=== PATIENT | male | born 1930 | race Caucasian/White ===

== ENCOUNTER 2016-04-13 00:22 | Inpatient (IN) | payer MEDICARE, OTHER, MEDICAID ==
[~2016-04-13] VITALS: Ht 195.6 cm; Wt 60.3 kg
[~2016-04-13 00:22] MED LIST: AMLO2.5T PO; CLOP75TA2 PO; GLUC100017 PO; MULT-24 PO; TAMS-12 PO
[2016-04-13 00:57] LABS: BASOPHILS # (AUTO) 0.1 /CMM (0.0-0.2); BASOPHILS % (AUTO) 0.3 % (0.0-2.0); DIFF TOTAL % 100 %; EOSINOPHILS # (AUTO) 0.1 /CMM (0.0-0.7); EOSINOPHILS % (AUTO) 0.7 % (0.0-6.0); HEMATOCRIT 35 % (39-51); HEMOGLOBIN 11.6 g/dL (13.5-17.5); LYMPHOCYTES # (AUTO) 1.1 /CMM (0.8-4.8); LYMPHOCYTES % (AUTO) 5.6 % (20.0-44.0); MEAN CORPUSCULAR HEMOGLOBIN 29 PG (26.0-33.0); MEAN CORPUSCULAR HGB CONC 33 g/dl (31.0-36.0); MEAN CORPUSCULAR VOLUME 88 fL (80-96); MONOCYTES # (AUTO) 1.1 /CMM (0.1-1.30); MONOCYTES % (AUTO) 5.4 % (2.0-12.0); NEUTROPHILS # (AUTO) 17.1 /CMM (1.8-8.9); PLATELET COUNT (AUTO) 329 /CMM (150-450); WHITE BLOOD COUNT (AUTO) 19.5 K/uL (4.3-11.0)
[2016-04-13 01:08] LABS: ANION GAP 9 (5-14); CALCIUM, SERUM 9.4 mg/dL (8.5-10.1); CARBON DIOXIDE 31 mmol/L (21-32); CHLORIDE 103 mmol/L (98-107); CREATININE 1.2 mg/dL (0.6-1.3); GLUCOSE 118 mg/dL (74-106); POTASSIUM 4.2 mmol/L (3.5-5.1); SODIUM SERUM 139 mmol/L (136-145); UREA NITROGEN, BLOOD 25 mg/dL (7-18)
[2016-04-13 01:12] LABS: INR 0.96 (0.87-1.13); PROTHROMBIN TIME 10.4 SECS (9.5-12.7)
[2016-04-13 01:14] LABS: ALANINE AMINOTRANSFERASE 19 U/L (12-78); ALBUMIN 3.4 g/dL (3.4-5.0); ASPARTATE AMINOTRANSFERASE 12 U/L (15-37); BILIRUBIN,DIRECT 0.1 mg/dL (0.0-0.2); BILIRUBIN,TOTAL 0.2 mg/dL (0.2-1.0); INDIRECT BILIRUBIN 0.1 mg/dL (0.0-1.1); TOTAL PROTEIN, SERUM 6.9 g/dL (6.4-8.2)
[2016-04-13 01:18] LABS: TROPONIN I < 0.017 ng/mL (0.00-0.056)
[2016-04-13] MEDS ORDERED: TDAP [DIPH/PERTUSSIS/TET] 0.5 ML VIAL IM ONE (01:30)
[2016-04-13] MEDS ORDERED: MAGN400O6 PO (01:37)
[2016-04-13] MEDS ORDERED: CARB-93 PO (01:37)
[2016-04-13] MEDS ORDERED: BISA10SU8 RC (01:37)
[2016-04-13] MEDS ORDERED: ACET650T10 PO (01:37)
[2016-04-13] MEDS ORDERED: DEXT15DR6 EACHEYE (01:37)
[2016-04-13] MEDS ORDERED: NA P133E RC (01:37)
[2016-04-13] MEDS ORDERED: HYDR-3326 PO (01:37)
[2016-04-13] MEDS ORDERED: LORAZEPAM INJ 2 MG/ML VIAL ONE (02:39)
[2016-04-13] MEDS ORDERED: LORAZEPAM INJ 2 MG/ML VIAL IV ONE (03:00)
[2016-04-13 05:30] VITALS: BP 149/77
[2016-04-13] MEDS ORDERED: ONDANSETRON HCL/PF 4 MG/2 ML VIAL IVP PRN (07:00)
[2016-04-13] MEDS ORDERED: Z GUARD REMEDY 2 OZ OINT TP PRN (07:00)
[2016-04-13] MEDS ORDERED: MAG HYDROX/AL HYDROX/SIMETH 30 ML UDC PO PRN (07:00)
[2016-04-13] MEDS ORDERED: MAGNESIUM HYDROXIDE 30 ML UDC PO PRN ×2 (07:00→09:30)
[2016-04-13 07:52] LABS: ADD UA MICROSCOPIC NO; KETONES,URINE NEGATIVE (NEGATIVE); LEUKOCYTE ESTERASE ,URINE NEGATIVE (NEGATIVE)
[2016-04-13 08:00] VITALS: BP 128/71
[2016-04-13 08:18] LABS: PHOSPHORUS 2.5 mg/dL (2.5-4.9)
[2016-04-13] MEDS: PANTOPRAZOLE 40 MG TABLET.DR PO SCH (08:28)
[2016-04-13] MEDS ORDERED: AMIN30LI4 PO (08:51)
[2016-04-13] MEDS ORDERED: AMLO2.5T PO (08:51)
[2016-04-13] MEDS ORDERED: BISACODYL SUPP (10 MG) 10 MG/SUPP.RECT SUPP.RECT RC PRN (09:30)
[2016-04-13] MEDS ORDERED: IV SET PRIMARY PUMP SET 1 EA INFUS.SET MC ONE (09:43)
[2016-04-13] MEDS: IV NS 0.9% 1,000 ML IV PRN ×2 (09:47→23:20)
[2016-04-13] MEDS: CLOPIDOGREL BISULFATE 75 MG TABLET PO SCH (09:53)
[2016-04-13] MEDS: AMLODIPINE BESYLATE 2.5 MG TABLET PO SCH (09:54)
[2016-04-13 09:56] VITALS: BP_SYST 116; BP_SYST 132; BP_SYST 137; BP_DIAS 57; BP_DIAS 64; BP_DIAS 82
[2016-04-13] MEDS: BOOST PLUS FOOD-VANILLA 237 ML BOX PO SCH ×2 (12:24→16:45)
[2016-04-13] MEDS: POLYVINYL ALCOHOL 15 ML BOTTLE EACHEYE SCH ×2 (12:25→16:43)
[2016-04-13] MEDS: CARBIDOPA/LEVODOPA 25/100 MG 1 UDTAB PO SCH ×3 (12:27→20:52)
[2016-04-13 16:00] VITALS: BP 135/97
[2016-04-13] MEDS: LORAZEPAM INJ 2 MG/ML VIAL IV PRN (16:26)
[2016-04-13] MEDS: NEOMY SULF/BACITRAC ZN/POLY 15 GM TUBE TP SCH (16:43)
[2016-04-13 20:00] VITALS: BP 131/62
[2016-04-13] MEDS: TAMSULOSIN 0.4 MG CAP.SR.24H PO SCH (20:52)
[2016-04-14] MEDS: LORAZEPAM INJ 2 MG/ML VIAL IV PRN ×3 (02:44→22:21)
[2016-04-14 07:56] LABS: BASOPHILS # (AUTO) 0.1 /CMM (0.0-0.2); BASOPHILS % (AUTO) 0.5 % (0.0-2.0); DIFF TOTAL % 100 %; EOSINOPHILS # (AUTO) 0.2 /CMM (0.0-0.7); EOSINOPHILS % (AUTO) 1.5 % (0.0-6.0); HEMATOCRIT 31 % (39-51); HEMOGLOBIN 10.4 g/dL (13.5-17.5); LYMPHOCYTES # (AUTO) 1.5 /CMM (0.8-4.8); LYMPHOCYTES % (AUTO) 11.9 % (20.0-44.0); MEAN CORPUSCULAR HEMOGLOBIN 29 PG (26.0-33.0); MEAN CORPUSCULAR HGB CONC 33 g/dl (31.0-36.0); MEAN CORPUSCULAR VOLUME 88 fL (80-96); MONOCYTES % (AUTO) 8.1 % (2.0-12.0); NEUTROPHILS # (AUTO) 9.6 /CMM (1.8-8.9); PLATELET COUNT (AUTO) 293 /CMM (150-450); RED BLOOD CELL COUNT(AUTO) 3.54 MIL/uL (4.5-6.0); WHITE BLOOD COUNT (AUTO) 12.3 K/uL (4.3-11.0)
[2016-04-14 08:00] VITALS: BP 142/71
[2016-04-14] MEDS: BOOST PLUS FOOD-VANILLA 237 ML BOX PO SCH ×2 (08:07→18:18)
[2016-04-14] MEDS: CARBIDOPA/LEVODOPA 25/100 MG 1 UDTAB PO SCH ×4 (08:07→20:56)
[2016-04-14] MEDS: CLOPIDOGREL BISULFATE 75 MG TABLET PO SCH (08:07)
[2016-04-14] MEDS: PANTOPRAZOLE 40 MG TABLET.DR PO SCH (08:07)
[2016-04-14] MEDS: AMLODIPINE BESYLATE 2.5 MG TABLET PO SCH (08:07)
[2016-04-14] MEDS: POLYVINYL ALCOHOL 15 ML BOTTLE EACHEYE SCH ×3 (08:08→18:18)
[2016-04-14] MEDS: NEOMY SULF/BACITRAC ZN/POLY 15 GM TUBE TP SCH (08:08)
[2016-04-14 08:19] LABS: ALBUMIN 3.2 g/dL (3.4-5.0); BILIRUBIN,TOTAL 0.4 mg/dL (0.2-1.0); CALCIUM, SERUM 9.2 mg/dL (8.5-10.1); CREATININE 0.9 mg/dL (0.6-1.3); PHOSPHORUS 2.1 mg/dL (2.5-4.9); POTASSIUM 3.8 mmol/L (3.5-5.1); TOTAL PROTEIN, SERUM 6.6 g/dL (6.4-8.2)
[2016-04-14 16:07] VITALS: BP 150/75
[2016-04-14] MEDS ORDERED: K PHOS NEUTRAL 250 MG TABLET PO ONE (17:00)
[2016-04-14 20:15] VITALS: BP 130/62
[2016-04-14] MEDS: TAMSULOSIN 0.4 MG CAP.SR.24H PO SCH (20:56)
[2016-04-14] MEDS: IV NS 0.9% 1,000 ML IV PRN (21:00)
[2016-04-14] MEDS: ACETAMINOPHEN 325 MG TABLET PO PRN (21:04)
[2016-04-15] MEDS: LORAZEPAM INJ 2 MG/ML VIAL IV PRN (05:04)
[2016-04-15] MEDS: IV NS 0.9% 1,000 ML IV PRN (06:07)
[2016-04-15 08:00] VITALS: BP 147/87
[2016-04-15 08:11] LABS: PHOSPHORUS 2.5 mg/dL (2.5-4.9); POTASSIUM 3.5 mmol/L (3.5-5.1)
[2016-04-15] MEDS: CARBIDOPA/LEVODOPA 25/100 MG 1 UDTAB PO SCH ×4 (08:43→21:46)
[2016-04-15] MEDS: CLOPIDOGREL BISULFATE 75 MG TABLET PO SCH (08:43)
[2016-04-15] MEDS: PANTOPRAZOLE 40 MG TABLET.DR PO SCH (08:43)
[2016-04-15] MEDS: BOOST PLUS FOOD-VANILLA 237 ML BOX PO SCH ×2 (08:43→17:14)
[2016-04-15] MEDS: AMLODIPINE BESYLATE 2.5 MG TABLET PO SCH (08:44)
[2016-04-15] MEDS: NEOMY SULF/BACITRAC ZN/POLY 15 GM TUBE TP SCH (08:44)
[2016-04-15] MEDS: POLYVINYL ALCOHOL 15 ML BOTTLE EACHEYE SCH ×3 (08:52→17:15)
[2016-04-15 12:32] LABS: BASOPHILS % (AUTO) 0.3 % (0.0-2.0); DIFF TOTAL % 100 %; EOSINOPHILS # (AUTO) 0.1 /CMM (0.0-0.7); EOSINOPHILS % (AUTO) 0.7 % (0.0-6.0); HEMATOCRIT 29 % (39-51); HEMOGLOBIN 9.8 g/dL (13.5-17.5); LYMPHOCYTES # (AUTO) 1.5 /CMM (0.8-4.8); LYMPHOCYTES % (AUTO) 11.6 % (20.0-44.0); MEAN CORPUSCULAR HEMOGLOBIN 30 PG (26.0-33.0); MEAN CORPUSCULAR HGB CONC 33 g/dl (31.0-36.0); MEAN CORPUSCULAR VOLUME 89 fL (80-96); MONOCYTES # (AUTO) 1.2 /CMM (0.1-1.30); MONOCYTES % (AUTO) 9.5 % (2.0-12.0); NEUTROPHILS % (AUTO) 77.9 % (43.0-81.0); PLATELET COUNT (AUTO) 259 /CMM (150-450); WHITE BLOOD COUNT (AUTO) 12.9 K/uL (4.3-11.0)
[2016-04-15 16:00] VITALS: BP 131/69
[2016-04-15 19:00] VITALS: BP_SYST 126; BP_SYST 143; BP_DIAS 67; BP_DIAS 74
[2016-04-15 20:00] VITALS: BP 126/67
[2016-04-15] MEDS: ACETAMINOPHEN 325 MG TABLET PO PRN (21:47)
[2016-04-15] MEDS: TAMSULOSIN 0.4 MG CAP.SR.24H PO SCH (21:47)
[2016-04-16] MEDS: LORAZEPAM INJ 2 MG/ML VIAL IV PRN (02:37)
[2016-04-16 08:00] VITALS: BP 134/74
[2016-04-16] MEDS: PANTOPRAZOLE 40 MG TABLET.DR PO SCH (08:11)
[2016-04-16] MEDS: CLOPIDOGREL BISULFATE 75 MG TABLET PO SCH (08:11)
[2016-04-16] MEDS: BOOST PLUS FOOD-VANILLA 237 ML BOX PO SCH (08:12)
[2016-04-16] MEDS: POLYVINYL ALCOHOL 15 ML BOTTLE EACHEYE SCH (08:12)
[2016-04-16 08:13] VITALS: BP 134/74
[2016-04-16] MEDS: CARBIDOPA/LEVODOPA 25/100 MG 1 UDTAB PO SCH (08:13)
[2016-04-16] MEDS: AMLODIPINE BESYLATE 2.5 MG TABLET PO SCH (08:13)
[2016-04-16] MEDS: NEOMY SULF/BACITRAC ZN/POLY 15 GM TUBE TP SCH (08:14)
== END 2016-04-16 11:50 | DRG 73 ==
LOC: ER 00:27 → TELE 03:01 → MED 16:22
PROVIDERS: ADMIT Nurse Practitioner Acute Care; ATTEND Internal Medicine
DX: G90.8 Other disorders of autonomic nervous system (principal); N17.0 Acute kidney failure with tubular necrosis; E44.0 Moderate protein-calorie malnutrition; L97.919 Non-pressure chronic ulcer of unspecified part of right lower leg with unspecified severity; I10 Essential (primary) hypertension; F03.90 Unspecified dementia, unspecified severity, without behavioral disturbance, psychotic disturbance, mood disturbance, and anxiety; S51.019A Laceration without foreign body of unspecified elbow, initial encounter; W19.XXXA Unspecified fall, initial encounter; Y92.129 Unspecified place in nursing home as the place of occurrence of the external cause; N40.0 Benign prostatic hyperplasia without lower urinary tract symptoms; G20 Parkinson's disease; Z86.73 Personal history of transient ischemic attack (TIA), and cerebral infarction without residual deficits; E78.5 Hyperlipidemia, unspecified; Z87.442 Personal history of urinary calculi; K21.9 Gastro-esophageal reflux disease without esophagitis; D72.829 Elevated white blood cell count, unspecified; M19.90 Unspecified osteoarthritis, unspecified site; S01.81XA Laceration without foreign body of other part of head, initial encounter; F02.80 Dementia in other diseases classified elsewhere, unspecified severity, without behavioral disturbance, psychotic disturbance, mood disturbance, and anxiety; G62.9 Polyneuropathy, unspecified; D64.9 Anemia, unspecified; I25.10 Atherosclerotic heart disease of native coronary artery without angina pectoris; I73.9 Peripheral vascular disease, unspecified
CPT/HCPCS: 36415; 70450-TC; 71010-TC; 72125-TC; 73070-TC; 73080-TC; 80048-TC; 80053-TC; 80061-TC; 80076-TC; 81000-TC; 83735-TC; 84100-TC; 84484-TC; 85025-TC; 85730-TC; 87081-TC; 97001-TC; A4606; A6402; A6403; J2060; J7030; Z7610

== ENCOUNTER 2016-04-19 17:15 | Inpatient (IN) | payer MEDICARE, MEDICAID ==
[~2016-04-19] VITALS: Ht 182.9 cm; Wt 77.1 kg
[~2016-04-19 17:15] MED LIST changes: +ACET650T10 PO; +AMIN30LI4 PO; +BISA10SU8 RC; +CARB-93 PO; +DEXT15DR6 EACHEYE; +MAGN400O6 PO; -MULT-24 PO; +NA P133E RC
[2016-04-19 17:50] LABS: BASOPHILS # (AUTO) 0.1 /CMM (0.0-0.2); BASOPHILS % (AUTO) 0.7 % (0.0-2.0); DIFF TOTAL % 100 %; EOSINOPHILS # (AUTO) 0.3 /CMM (0.0-0.7); EOSINOPHILS % (AUTO) 2.6 % (0.0-6.0); HEMATOCRIT 29 % (39-51); HEMOGLOBIN 9.8 g/dL (13.5-17.5); LYMPHOCYTES # (AUTO) 0.9 /CMM (0.8-4.8); LYMPHOCYTES % (AUTO) 9.2 % (20.0-44.0); MEAN CORPUSCULAR HEMOGLOBIN 29 PG (26.0-33.0); MEAN CORPUSCULAR HGB CONC 34 g/dl (31.0-36.0); MEAN CORPUSCULAR VOLUME 87 fL (80-96); MONOCYTES # (AUTO) 1.1 /CMM (0.1-1.30); MONOCYTES % (AUTO) 10.9 % (2.0-12.0); NEUTROPHILS # (AUTO) 7.8 /CMM (1.8-8.9); NEUTROPHILS % (AUTO) 76.6 % (43.0-81.0); PLATELET COUNT (AUTO) 342 /CMM (150-450); RED BLOOD CELL COUNT(AUTO) 3.34 MIL/uL (4.5-6.0); WHITE BLOOD COUNT (AUTO) 10.2 K/uL (4.3-11.0)
[2016-04-19 18:04] LABS: ANION GAP 10 (5-14); CALCIUM, SERUM 9.6 mg/dL (8.5-10.1); CARBON DIOXIDE 31 mmol/L (21-32); CHLORIDE 104 mmol/L (98-107); GLUCOSE 123 mg/dL (74-106); SODIUM SERUM 141 mmol/L (136-145); UREA NITROGEN, BLOOD 20 mg/dL (7-18)
[2016-04-19 18:19] LABS: ACETAMINOPHEN 9 ug/ml (10-30); ALANINE AMINOTRANSFERASE 10 U/L (12-78); ALBUMIN 3.1 g/dL (3.4-5.0); ASPARTATE AMINOTRANSFERASE 18 U/L (15-37); BILIRUBIN,DIRECT 0.1 mg/dL (0.0-0.2); BILIRUBIN,TOTAL 0.3 mg/dL (0.2-1.0); INDIRECT BILIRUBIN 0.2 mg/dL (0.0-1.1); TOTAL PROTEIN, SERUM 6.9 g/dL (6.4-8.2)
[2016-04-19 18:20] LABS: SALICYLATE 1.2 mg/dL (2.8-20.0)
[2016-04-19 19:24] LABS: KETONES,URINE Negative (NEGATIVE); LEUKOCYTE ESTERASE ,URINE Negative (NEGATIVE)
[2016-04-19 19:26] LABS: ADD UA MICROSCOPIC NO
[2016-04-19 19:47] LABS: CANNABINOID, URINE NEGATIVE (NEGATIVE); PHENCYCLIDINE SCREEN,URINE NEGATIVE (NEGATIVE)
[2016-04-19] MEDS ORDERED: ACETAMINOPHEN 325 MG TABLET PO PRN (23:00)
[2016-04-19] MEDS ORDERED: MAG HYDROX/AL HYDROX/SIMETH 30 ML UDC PO PRN (23:00)
[2016-04-19] MEDS ORDERED: MAGNESIUM HYDROXIDE 30 ML UDC PO PRN (23:00)
[2016-04-20 06:56] LABS: CREATININE 0.9 mg/dL (0.6-1.3)
[2016-04-20 08:00] VITALS: BP 154/72
[2016-04-20] MEDS: Z GUARD REMEDY 2 OZ OINT TP SCH ×2 (08:04→22:10)
[2016-04-20] MEDS ORDERED: BISACODYL SUPP (10 MG) 10 MG/SUPP.RECT SUPP.RECT RC PRN (11:00)
[2016-04-20] MEDS ORDERED: NA PHOS,M-B/NA PHOS,DI-BA 1 EA ENEMA RC PRN (11:30)
[2016-04-20] MEDS ORDERED: ACETAMINOPHEN 325 MG TABLET PO PRN (11:30)
[2016-04-20] MEDS ORDERED: MAGNESIUM HYDROXIDE 30 ML UDC PO PRN (11:30)
[2016-04-20] MEDS ORDERED: PROSTAT (PYXIS) 30 ML UDC PO SCH (12:00)
[2016-04-20] MEDS: CARBIDOPA/LEVODOPA 25/100 MG 1 UDTAB PO SCH ×3 (12:32→20:22)
[2016-04-20] MEDS: POLYVINYL ALCOHOL 15 ML BOTTLE OP SCH ×2 (13:53→16:12)
[2016-04-20 16:06] VITALS: BP 147/61
[2016-04-20] MEDS: clonazePAM 0.5 MG TABLET PO PRN (16:19)
[2016-04-20] MEDS: QUETIAPINE FUMARATE 25 MG TABLET PO SCH (17:32)
[2016-04-20 20:00] VITALS: BP 132/62
[2016-04-20] MEDS: DIVALPROEX SODIUM 125 MG CAP.SPRINK PO SCH (20:23)
[2016-04-20] MEDS: TAMSULOSIN 0.4 MG CAP.SR.24H PO SCH (22:09)
[2016-04-21] MEDS: TEMAZEPAM 7.5 MG CAPSULE PO PRN ×2 (00:31→22:26)
[2016-04-21 08:00] VITALS: BP 144/70
[2016-04-21] MEDS: DIVALPROEX SODIUM 125 MG CAP.SPRINK PO SCH ×2 (08:38→21:36)
[2016-04-21] MEDS: CLOPIDOGREL BISULFATE 75 MG TABLET PO SCH (08:38)
[2016-04-21] MEDS: PROSOURCE / PROSTAT (PYXIS) 30 ML UDC PO SCH (08:38)
[2016-04-21] MEDS: AMLODIPINE BESYLATE 2.5 MG TABLET PO SCH (08:39)
[2016-04-21] MEDS: QUETIAPINE FUMARATE 25 MG TABLET PO SCH ×2 (08:39→17:09)
[2016-04-21] MEDS: POLYVINYL ALCOHOL 15 ML BOTTLE OP SCH ×3 (08:41→17:08)
[2016-04-21] MEDS: CARBIDOPA/LEVODOPA 25/100 MG 1 UDTAB PO SCH ×4 (08:51→21:36)
[2016-04-21] MEDS: Z GUARD REMEDY 2 OZ OINT TP SCH ×2 (08:51→21:31)
[2016-04-21] MEDS: clonazePAM 0.5 MG TABLET PO PRN (13:55)
[2016-04-21 16:00] VITALS: BP 108/61
[2016-04-21 20:00] VITALS: BP 118/52
[2016-04-21] MEDS: TAMSULOSIN 0.4 MG CAP.SR.24H PO SCH (22:26)
[2016-04-22 07:20] LABS: BASOPHILS % (AUTO) 0.4 % (0.0-2.0); DIFF TOTAL % 100 %; EOSINOPHILS # (AUTO) 0.3 /CMM (0.0-0.7); EOSINOPHILS % (AUTO) 3.1 % (0.0-6.0); HEMATOCRIT 31 % (39-51); HEMOGLOBIN 10.1 g/dL (13.5-17.5); LYMPHOCYTES # (AUTO) 1.4 /CMM (0.8-4.8); LYMPHOCYTES % (AUTO) 12.8 % (20.0-44.0); MEAN CORPUSCULAR HEMOGLOBIN 29 PG (26.0-33.0); MEAN CORPUSCULAR HGB CONC 33 g/dl (31.0-36.0); MEAN CORPUSCULAR VOLUME 88 fL (80-96); MONOCYTES # (AUTO) 1.1 /CMM (0.1-1.30); MONOCYTES % (AUTO) 9.8 % (2.0-12.0); NEUTROPHILS # (AUTO) 8.4 /CMM (1.8-8.9); NEUTROPHILS % (AUTO) 73.9 % (43.0-81.0); PLATELET COUNT (AUTO) 383 /CMM (150-450); RED BLOOD CELL COUNT(AUTO) 3.48 MIL/uL (4.5-6.0); WHITE BLOOD COUNT (AUTO) 11.3 K/uL (4.3-11.0)
[2016-04-22 07:53] LABS: CALCIUM, SERUM 9.6 mg/dL (8.5-10.1)
[2016-04-22 08:00] VITALS: BP 126/61
[2016-04-22] MEDS: CLOPIDOGREL BISULFATE 75 MG TABLET PO SCH (09:35)
[2016-04-22] MEDS: QUETIAPINE FUMARATE 25 MG TABLET PO SCH ×2 (09:36→16:58)
[2016-04-22] MEDS: PROSOURCE / PROSTAT (PYXIS) 30 ML UDC PO SCH (09:36)
[2016-04-22] MEDS: DIVALPROEX SODIUM 125 MG CAP.SPRINK PO SCH ×3 (09:36→21:07)
[2016-04-22] MEDS: AMLODIPINE BESYLATE 2.5 MG TABLET PO SCH (09:37)
[2016-04-22] MEDS: CARBIDOPA/LEVODOPA 25/100 MG 1 UDTAB PO SCH ×5 (09:40→21:06)
[2016-04-22] MEDS: clonazePAM 0.5 MG TABLET PO PRN (10:22)
[2016-04-22] MEDS: Z GUARD REMEDY 2 OZ OINT TP SCH ×2 (10:34→21:07)
[2016-04-22] MEDS: POLYVINYL ALCOHOL 15 ML BOTTLE OP SCH ×3 (10:34→16:57)
[2016-04-22 16:00] VITALS: BP 128/76
[2016-04-22 20:00] VITALS: BP 137/74
[2016-04-22] MEDS: TAMSULOSIN 0.4 MG CAP.SR.24H PO SCH (22:08)
[2016-04-23 08:00] VITALS: BP 150/84
[2016-04-23] MEDS: PROSOURCE / PROSTAT (PYXIS) 30 ML UDC PO SCH (09:20)
[2016-04-23] MEDS: QUETIAPINE FUMARATE 25 MG TABLET PO SCH ×2 (09:20→17:17)
[2016-04-23] MEDS: CLOPIDOGREL BISULFATE 75 MG TABLET PO SCH (09:21)
[2016-04-23] MEDS: DIVALPROEX SODIUM 125 MG CAP.SPRINK PO SCH ×3 (09:21→21:38)
[2016-04-23] MEDS: AMLODIPINE BESYLATE 2.5 MG TABLET PO SCH (09:21)
[2016-04-23] MEDS: CARBIDOPA/LEVODOPA 25/100 MG 1 UDTAB PO SCH ×4 (09:26→21:38)
[2016-04-23] MEDS: Z GUARD REMEDY 2 OZ OINT TP SCH ×2 (09:27→21:38)
[2016-04-23] MEDS: POLYVINYL ALCOHOL 15 ML BOTTLE OP SCH ×3 (09:28→17:20)
[2016-04-23] MEDS ORDERED: QUETIAPINE FUMARATE 25 MG TABLET PO PRN (15:00)
[2016-04-23 16:00] VITALS: BP 104/58
[2016-04-23 20:13] VITALS: BP 153/80
[2016-04-23] MEDS: TAMSULOSIN 0.4 MG CAP.SR.24H PO SCH (21:38)
[2016-04-24 07:25] LABS: BASOPHILS % (AUTO) 0.3 % (0.0-2.0); DIFF TOTAL % 100 %; EOSINOPHILS # (AUTO) 0.3 /CMM (0.0-0.7); EOSINOPHILS % (AUTO) 2.8 % (0.0-6.0); HEMATOCRIT 33 % (39-51); HEMOGLOBIN 10.8 g/dL (13.5-17.5); LYMPHOCYTES # (AUTO) 1.4 /CMM (0.8-4.8); LYMPHOCYTES % (AUTO) 13.3 % (20.0-44.0); MEAN CORPUSCULAR HEMOGLOBIN 29 PG (26.0-33.0); MEAN CORPUSCULAR HGB CONC 33 g/dl (31.0-36.0); MEAN CORPUSCULAR VOLUME 88 fL (80-96); MONOCYTES # (AUTO) 1.1 /CMM (0.1-1.30); NEUTROPHILS # (AUTO) 7.9 /CMM (1.8-8.9); NEUTROPHILS % (AUTO) 73.6 % (43.0-81.0); PLATELET COUNT (AUTO) 386 /CMM (150-450); RED BLOOD CELL COUNT(AUTO) 3.74 MIL/uL (4.5-6.0); WHITE BLOOD COUNT (AUTO) 10.8 K/uL (4.3-11.0)
[2016-04-24 08:00] VITALS: BP 148/79
[2016-04-24] MEDS: POLYVINYL ALCOHOL 15 ML BOTTLE OP SCH ×3 (08:31→17:33)
[2016-04-24] MEDS: AMLODIPINE BESYLATE 2.5 MG TABLET PO SCH (08:36)
[2016-04-24] MEDS: CLOPIDOGREL BISULFATE 75 MG TABLET PO SCH (08:36)
[2016-04-24] MEDS: DIVALPROEX SODIUM 125 MG CAP.SPRINK PO SCH ×3 (08:36→21:30)
[2016-04-24] MEDS: QUETIAPINE FUMARATE 25 MG TABLET PO SCH ×3 (08:37→17:34)
[2016-04-24] MEDS: PROSOURCE / PROSTAT (PYXIS) 30 ML UDC PO SCH (08:37)
[2016-04-24] MEDS: Z GUARD REMEDY 2 OZ OINT TP SCH ×2 (08:40→21:00)
[2016-04-24] MEDS: CARBIDOPA/LEVODOPA 25/100 MG 1 UDTAB PO SCH ×4 (08:40→21:30)
[2016-04-24] MEDS ORDERED: CLOPIDOGREL BISULFATE 75 MG TABLET PO SCH (13:00)
[2016-04-24 16:00] VITALS: BP 132/74
[2016-04-24 19:58] VITALS: BP 115/65
[2016-04-24] MEDS: TAMSULOSIN 0.4 MG CAP.SR.24H PO SCH (21:30)
[2016-04-25] MEDS ORDERED: FIXODENT 1 EA TUBE PO PRN (07:30)
[2016-04-25 08:00] VITALS: BP 140/79
[2016-04-25] MEDS: Z GUARD REMEDY 2 OZ OINT TP SCH ×2 (09:00→21:29)
[2016-04-25] MEDS: DIVALPROEX SODIUM 125 MG CAP.SPRINK PO SCH ×3 (09:08→21:25)
[2016-04-25] MEDS: AMLODIPINE BESYLATE 2.5 MG TABLET PO SCH ×2 (09:09→17:51)
[2016-04-25] MEDS: QUETIAPINE FUMARATE 25 MG TABLET PO SCH ×3 (09:10→17:49)
[2016-04-25] MEDS: CLOPIDOGREL BISULFATE 75 MG TABLET PO SCH (09:10)
[2016-04-25] MEDS: PROSOURCE / PROSTAT (PYXIS) 30 ML UDC PO SCH (09:18)
[2016-04-25] MEDS: POLYVINYL ALCOHOL 15 ML BOTTLE OP SCH ×3 (09:21→17:00)
[2016-04-25] MEDS: CARBIDOPA/LEVODOPA 25/100 MG 1 UDTAB PO SCH ×4 (09:59→21:24)
[2016-04-25 16:00] VITALS: BP 108/54
[2016-04-25 21:14] VITALS: BP 100/52
[2016-04-25] MEDS: TAMSULOSIN 0.4 MG CAP.SR.24H PO SCH (21:25)
[2016-04-26 08:00] VITALS: BP 139/70
[2016-04-26] MEDS: CARBIDOPA/LEVODOPA 25/100 MG 1 UDTAB PO SCH ×4 (09:00→21:23)
[2016-04-26] MEDS: Z GUARD REMEDY 2 OZ OINT TP SCH ×2 (09:00→21:23)
[2016-04-26] MEDS: PROSOURCE / PROSTAT (PYXIS) 30 ML UDC PO SCH (09:52)
[2016-04-26] MEDS: QUETIAPINE FUMARATE 25 MG TABLET PO SCH ×3 (09:53→18:00)
[2016-04-26] MEDS: DIVALPROEX SODIUM 125 MG CAP.SPRINK PO SCH ×3 (09:53→21:23)
[2016-04-26] MEDS: CLOPIDOGREL BISULFATE 75 MG TABLET PO SCH (09:54)
[2016-04-26] MEDS: POLYVINYL ALCOHOL 15 ML BOTTLE OP SCH ×3 (10:02→18:03)
[2016-04-26 16:00] VITALS: BP 125/55
[2016-04-26 19:58] VITALS: BP 153/74
[2016-04-26] MEDS: clonazePAM 0.5 MG TABLET PO PRN (21:23)
[2016-04-26] MEDS: TAMSULOSIN 0.4 MG CAP.SR.24H PO SCH (21:23)
[2016-04-27 08:00] VITALS: BP 122/53
[2016-04-27] MEDS: POLYVINYL ALCOHOL 15 ML BOTTLE OP SCH ×3 (08:30→16:44)
[2016-04-27] MEDS: DIVALPROEX SODIUM 125 MG CAP.SPRINK PO SCH ×3 (08:32→20:21)
[2016-04-27] MEDS: CLOPIDOGREL BISULFATE 75 MG TABLET PO SCH (08:32)
[2016-04-27] MEDS: PROSOURCE / PROSTAT (PYXIS) 30 ML UDC PO SCH (08:34)
[2016-04-27 08:38] VITALS: BP 132/62
[2016-04-27] MEDS: QUETIAPINE FUMARATE 25 MG TABLET PO SCH ×3 (08:38→16:47)
[2016-04-27] MEDS: AMLODIPINE BESYLATE 2.5 MG TABLET PO SCH (08:38)
[2016-04-27] MEDS: CARBIDOPA/LEVODOPA 25/100 MG 1 UDTAB PO SCH ×4 (08:38→20:25)
[2016-04-27] MEDS: Z GUARD REMEDY 2 OZ OINT TP SCH ×2 (09:23→20:29)
[2016-04-27 16:00] VITALS: BP 123/61
[2016-04-27 20:00] VITALS: BP 154/90
[2016-04-27] MEDS: TEMAZEPAM 7.5 MG CAPSULE PO PRN (21:33)
[2016-04-27] MEDS: TAMSULOSIN 0.4 MG CAP.SR.24H PO SCH (21:33)
[2016-04-28 08:00] VITALS: BP_SYST 103; BP_SYST 143; BP_DIAS 68; BP_DIAS 73
[2016-04-28] MEDS: DIVALPROEX SODIUM 125 MG CAP.SPRINK PO SCH (08:29)
[2016-04-28] MEDS: PROSOURCE / PROSTAT (PYXIS) 30 ML UDC PO SCH (08:29)
[2016-04-28] MEDS: QUETIAPINE FUMARATE 25 MG TABLET PO SCH ×2 (08:29→12:23)
[2016-04-28] MEDS: CLOPIDOGREL BISULFATE 75 MG TABLET PO SCH (08:29)
[2016-04-28] MEDS: POLYVINYL ALCOHOL 15 ML BOTTLE OP SCH ×2 (08:29→12:23)
[2016-04-28] MEDS: CARBIDOPA/LEVODOPA 25/100 MG 1 UDTAB PO SCH ×2 (08:29→12:23)
[2016-04-28 08:30] VITALS: BP 142/73
[2016-04-28] MEDS: AMLODIPINE BESYLATE 2.5 MG TABLET PO SCH (08:30)
[2016-04-28] MEDS: Z GUARD REMEDY 2 OZ OINT TP SCH (09:12)
== END 2016-04-28 13:32 | DRG 885 ==
LOC: ER 17:17 → GPS 22:04
PROVIDERS: ADMIT Psychiatry & Neurology Psychiatry; ATTEND Family Medicine
DX: F29 Unspecified psychosis not due to a substance or known physiological condition (principal); F02.80 Dementia in other diseases classified elsewhere, unspecified severity, without behavioral disturbance, psychotic disturbance, mood disturbance, and anxiety; N17.0 Acute kidney failure with tubular necrosis; E44.1 Mild protein-calorie malnutrition; L97.919 Non-pressure chronic ulcer of unspecified part of right lower leg with unspecified severity; F39 Unspecified mood [affective] disorder; D64.9 Anemia, unspecified; D72.829 Elevated white blood cell count, unspecified; G20 Parkinson's disease; Z86.73 Personal history of transient ischemic attack (TIA), and cerebral infarction without residual deficits; R13.10 Dysphagia, unspecified; I25.10 Atherosclerotic heart disease of native coronary artery without angina pectoris; I10 Essential (primary) hypertension; K21.9 Gastro-esophageal reflux disease without esophagitis; N40.0 Benign prostatic hyperplasia without lower urinary tract symptoms; E78.5 Hyperlipidemia, unspecified; Z87.442 Personal history of urinary calculi; N20.0 Calculus of kidney; I73.9 Peripheral vascular disease, unspecified; Z66 Do not resuscitate
CPT/HCPCS: 36415; 76882; 80048-TC; 80061-TC; 80076-TC; 80305; 81000-TC; 82565-TC; 85025-TC; 87081-TC; 92521; 97001-TC; 97116-TC; 97530-TC; A4606; A6402; G0480; G6039-TC; Z7610

== ENCOUNTER 2016-05-21 11:16 | Emergency (ER) | payer MEDICARE, MEDICAID ==
[~2016-05-21] VITALS: Ht 177.8 cm; Wt 58.5 kg
--- NOTE | 2016-05-21 11:16 | NUR ---
BIB PRIVATE EMT, BRUISES/HEMATOMA, FOREHEAD AND EXTREMITIES. NAD NOTED. PT AAO X1, CONFUSED. NON COMBATIVE. VSS. AWAITING MD FOR EVAL.
--- NOTE | 2016-05-21 12:00 | NUR ---
TAKEN TO CT
--- NOTE | 2016-05-21 13:16 | NUR ---
[facility] CALLED FOR PT PICKUP ETA GIVEN: 30 MINS
[2016-05-21 13:27] VITALS: BP 124/69
--- NOTE | 2016-05-21 14:08 | NUR ---
PT DC BACK TO SNF IN STABLE CONDITION. NAD NOTED. NO FURTHER COMPLAINTS. VSS.
== END 2016-05-21 14:06 | disposition home or self-care (01) ==
LOC: ER 11:18
DX: S09.90XA Unspecified injury of head, initial encounter (principal); S50.11XA Contusion of right forearm, initial encounter; F03.90 Unspecified dementia, unspecified severity, without behavioral disturbance, psychotic disturbance, mood disturbance, and anxiety; G20 Parkinson's disease; I10 Essential (primary) hypertension; Z86.73 Personal history of transient ischemic attack (TIA), and cerebral infarction without residual deficits; W19.XXXA Unspecified fall, initial encounter; Y93.89 Activity, other specified; Y92.89 Other specified places as the place of occurrence of the external cause; Y99.8 Other external cause status
CPT/HCPCS: 70450-TC; A4606; Z7610

== ENCOUNTER 2016-06-21 10:10 | Emergency (ER) | payer MEDICARE, OTHER, MEDICAID ==
[~2016-06-21] VITALS: Ht 175.3 cm; Wt 72.6 kg
--- NOTE | 2016-06-21 10:21 | NUR ---
Bibpa from [facility] due to sp fall, pt unable to recall when. Noted with right eyebrow discoloraiton and swelling, rback of right ear is also noted with dry skin tear covered with dressing. Patient is aao1. Appears in no acute distress, respiration even and unlabored. Afebrile at this time, vss. will cont to monitot
[2016-06-21] MEDS ORDERED: TDAP [DIPH/PERTUSSIS/TET] 0.5 ML VIAL IM ONE ×2 (10:38→11:00)
[2016-06-21 10:52] LABS: BASOPHILS # (AUTO) 0.1 /CMM (0.0-0.2); BASOPHILS % (AUTO) 0.6 % (0.0-2.0); EOSINOPHILS # (AUTO) 0.1 /CMM (0.0-0.7); EOSINOPHILS % (AUTO) 1.3 % (0.0-6.0); HEMATOCRIT 33 % (39-51); HEMOGLOBIN 10.7 g/dL (13.5-17.5); LYMPHOCYTES # (AUTO) 1.2 /CMM (0.8-4.8); LYMPHOCYTES % (AUTO) 11.2 % (20.0-44.0); MEAN CORPUSCULAR HEMOGLOBIN 29 PG (26.0-33.0); MEAN CORPUSCULAR HGB CONC 33 g/dl (31.0-36.0); MEAN CORPUSCULAR VOLUME 87 fL (80-96); MONOCYTES % (AUTO) 9.7 % (2.0-12.0); NEUTROPHILS % (AUTO) 77.2 % (43.0-81.0); PLATELET COUNT (AUTO) 198 /CMM (150-450); RDW COEFFICIENT OF VARIATION 14.1 (11.5-15.0); RED BLOOD CELL COUNT(AUTO) 3.73 MIL/uL (4.5-6.0); WHITE BLOOD COUNT (AUTO) 10.4 K/uL (4.3-11.0)
[2016-06-21 10:56] LABS: APPEARANCE,URINE Turbid (CLEAR); BILIRUBIN,URINE Negative (NEGATIVE); BLOOD, URINE Large Ery/uL (NEGATIVE); COLOR,URINE Yellow (YELLOW); KETONES,URINE Trace (NEGATIVE); LEUKOCYTE ESTERASE ,URINE Small (NEGATIVE); NITRITE, URINE Negative (NEGATIVE); PH,URINE 5.5 (5.0-8.0); PROTEIN,URINE >=300 mg/dl (NEGATIVE); UGLUCOSE Negative (NEGATIVE)
[2016-06-21 11:01] LABS: WBC,URINE TOO NUMEROUS TO COUN /HPF (0-3)
[2016-06-21 11:02] LABS: ADD URINE CULTURE YES; BACTERIA,URINE Few /HPF (None Seen); SQUAMOUS EPITHELIAL CELL,UR Few /HPF (None Seen)
[2016-06-21 11:02] LABS: CALCIUM, SERUM 9.5 mg/dL (8.5-10.1); POTASSIUM 4.1 mmol/L (3.5-5.1)
--- NOTE | 2016-06-21 11:09 | NUR ---
urine sample sent to lab
[2016-06-21] MEDS ORDERED: SULFAMETH/TRIMETH 800/160 MG 1 UDTAB TABLET PO ONE ×2 (11:27→11:30)
--- NOTE | 2016-06-21 11:44 | NUR ---
CALLED [facility] FOR TRANSPORTATION GOING TO [facility] ETA 1240
[2016-06-21] MEDS ORDERED: LORAZEPAM INJ 2 MG/ML VIAL ONE (12:18)
[2016-06-21] MEDS ORDERED: LORAZEPAM INJ 2 MG/ML VIAL IM ONE (12:30)
--- NOTE | 2016-06-21 12:46 | NUR ---
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
[2016-06-21 13:18] VITALS: BP 112/80
--- NOTE | 2016-06-21 13:19 | NUR ---
pt was picked up by med response for transfer to [facility]
== END 2016-06-21 13:20 | disposition home or self-care (01) ==
LOC: ER 10:13
DX: S00.83XA Contusion of other part of head, initial encounter (principal); S00.11XA Contusion of right eyelid and periocular area, initial encounter; F03.90 Unspecified dementia, unspecified severity, without behavioral disturbance, psychotic disturbance, mood disturbance, and anxiety; G20 Parkinson's disease; F32.9 Major depressive disorder, single episode, unspecified; F29 Unspecified psychosis not due to a substance or known physiological condition; N40.0 Benign prostatic hyperplasia without lower urinary tract symptoms; I10 Essential (primary) hypertension; Z86.73 Personal history of transient ischemic attack (TIA), and cerebral infarction without residual deficits; W18.30XA Fall on same level, unspecified, initial encounter; Y93.89 Activity, other specified; Y92.89 Other specified places as the place of occurrence of the external cause; Y99.8 Other external cause status
CPT/HCPCS: 36415; 70450-TC; 70486-TC; 72125-TC; 80048-TC; 81000-TC; 85025-TC; 87086-TC; 90715; A4606; J2060; Z7610

== ENCOUNTER 2016-07-16 19:55 | Inpatient (IN) | payer MEDICARE, OTHER, MEDICAID ==
[~2016-07-16] VITALS: Ht 177.8 cm; Wt 53.1 kg
--- NOTE | 2016-07-16 20:05 | NUR ---
To bed 7 an 85 yo male bibra from [facility] with c/o of left hip pain with xr report of positive left hip fracture. patient is confused, calmed at this time. vss. initiated comfort measures. proper body alignment maintained. awaiting for er md coyle.
[2016-07-16] MEDS ORDERED: TAMS-12 PO (20:09)
[2016-07-16] MEDS ORDERED: CLON0.5T PO (20:09)
[2016-07-16] MEDS ORDERED: BISA-79 RC (20:09)
[2016-07-16] MEDS ORDERED: DIVA250T PO (20:09)
[2016-07-16] MEDS ORDERED: QUET25TA PO ×2 (20:24)
[2016-07-16] MEDS ORDERED: MAG355OR18 PO (20:24)
[2016-07-16] MEDS ORDERED: MELA3TAB PO (20:24)
--- NOTE | 2016-07-16 20:24 | NUR ---
started a saline lock on the right hand g18, blood drawn and sent to lab.
[2016-07-16 20:27] LABS: BASOPHILS # (AUTO) 0.1 /CMM (0.0-0.2); BASOPHILS % (AUTO) 1.3 % (0.0-2.0); EOSINOPHILS # (AUTO) 0.2 /CMM (0.0-0.7); EOSINOPHILS % (AUTO) 1.4 % (0.0-6.0); HEMATOCRIT 28 % (39-51); HEMOGLOBIN 9.3 g/dL (13.5-17.5); LYMPHOCYTES # (AUTO) 1.1 /CMM (0.8-4.8); LYMPHOCYTES % (AUTO) 9.6 % (20.0-44.0); MEAN CORPUSCULAR HEMOGLOBIN 29 PG (26.0-33.0); MEAN CORPUSCULAR HGB CONC 34 g/dl (31.0-36.0); MEAN CORPUSCULAR VOLUME 85 fL (80-96); MONOCYTES # (AUTO) 1.4 /CMM (0.1-1.30); MONOCYTES % (AUTO) 12.5 % (2.0-12.0); NEUTROPHILS # (AUTO) 8.3 /CMM (1.8-8.9); NEUTROPHILS % (AUTO) 75.2 % (43.0-81.0); PLATELET COUNT (AUTO) 480 /CMM (150-450); RDW COEFFICIENT OF VARIATION 15.1 (11.5-15.0); RED BLOOD CELL COUNT(AUTO) 3.26 MIL/uL (4.5-6.0); WHITE BLOOD COUNT (AUTO) 11.1 K/uL (4.3-11.0)
[2016-07-16] MEDS ORDERED: LIDOCAINE 2% JEL UROJET 10 ML MM ONE (20:30)
[2016-07-16 20:36] LABS: CALCIUM, SERUM 9.3 mg/dL (8.5-10.1); CARBON DIOXIDE 33 mmol/L (21-32); CHLORIDE 104 mmol/L (98-107); CREATININE 0.8 mg/dL (0.6-1.3); GLUCOSE 109 mg/dL (74-106); POTASSIUM 4.3 mmol/L (3.5-5.1); SODIUM SERUM 140 mmol/L (136-145); UREA NITROGEN, BLOOD 18 mg/dL (7-18)
--- NOTE | 2016-07-16 20:37 | NUR ---
M/S 205-2
--- NOTE | 2016-07-16 20:37 | NUR ---
xr tech at bedside
[2016-07-16 20:41] LABS: INR 0.98 (0.87-1.13); PROTHROMBIN TIME 10.2 SECS (9.5-12.7)
[2016-07-16] MEDS ORDERED: ONDANSETRON HCL/PF 4 MG/2 ML VIAL ONE (20:41)
[2016-07-16] MEDS ORDERED: MORPHINE SULFATE INJ 4 MG/ML DISP.SYRIN ONE (20:41)
[2016-07-16 20:45] LABS: TROPONIN I < 0.017 ng/mL (0.00-0.056)
[2016-07-16] MEDS ORDERED: ONDANSETRON HCL/PF - ER 4 MG/2 ML VIAL IV ONE (21:00)
[2016-07-16] MEDS ORDERED: MORPHINE SULFATE INJ 2 MG/ML DISP.SYRIN IV ONE (21:00)
--- NOTE | 2016-07-16 21:05 | NUR ---
Report given to Samra BABCOCK for lizbet admission.
[2016-07-16] MEDS ORDERED: ZOLPIDEM TARTRATE 5 MG TABLET PO PRN (21:30)
[2016-07-16] MEDS ORDERED: ACETAMINOPHEN 325 MG TABLET PO PRN (21:30)
[2016-07-16] MEDS ORDERED: MAGNESIUM HYDROXIDE 30 ML UDC PO PRN ×2 (21:30)
[2016-07-16] MEDS ORDERED: BISACODYL SUPP (10 MG) 10 MG/SUPP.RECT SUPP.RECT RC PRN (21:30)
[2016-07-16] MEDS ORDERED: ONDANSETRON HCL/PF 4 MG/2 ML VIAL IVP PRN (21:30)
[2016-07-16] MEDS ORDERED: MAG HYDROX/AL HYDROX/SIMETH 30 ML UDC PO PRN ×2 (21:30)
[2016-07-16] MEDS ORDERED: HYDROCODONE/APAP 10/325MG 1 EA TABLET PO PRN (21:30)
[2016-07-16] MEDS ORDERED: HYDROCODONE/APAP 5/325MG 1 EACH TABLET PO PRN (21:30)
[2016-07-16 21:51] VITALS: BP 136/93
--- NOTE | 2016-07-16 21:51 | NUR ---
RECEIVED NEW ADMISSION FROM ER WITH DX OF RIGHT FEMUR NECK FRACTURE. PATIENT IS A RESIDENT OF [facility], PATIENT IS ORIENTED TO SELF, ANSWERS TO YES OR NO QUESTIONS ONLY, NO SOB, NO RESPIRATORY DISTRESS, DENIES ANY PAIN AT THIS TIME, INTERMITTENTLY SCREAMING, HAS HISTORY OF DEMENTIA AND PSYCHOSIS. LUNG SOUNDS ARE CLEAR, ABDOMEN SOFT AND NON-TENDER, ACTIVE BOWEL SOUNDS, HAS GOOD URINE OUTPUT IN DIAPER. MULTIPLE DISCOLORATIONS NOTED TO BILATERAL UPPER AND LOWER EXTREMITIES, PITTING EDEMA +4 TO RIGHT FOOT. GENERAL SKIN CONDITIONS ASSESSED AND PHOTOGRAPHED, MADE COMFORTABLE, CALL LIGHT WITHIN REACH
--- NOTE | 2016-07-16 21:57 | NUR ---
Transported patient to ms floor, no incident noted. vss.
[2016-07-16] MEDS ORDERED: clonazePAM 0.5 MG TABLET ONE (21:58)
[2016-07-16] MEDS ORDERED: ENOXAPARIN SODIUM 40 MG/0.4 ML DISP.SYRIN SQ ONE (21:58)
[2016-07-16] MEDS ORDERED: TAMSULOSIN 0.4 MG CAP.SR.24H ONE (22:02)
[2016-07-16] MEDS: ENOXAPARIN SODIUM 40 MG/0.4 ML DISP.SYRIN SQ SCH (22:48)
[2016-07-16] MEDS: TAMSULOSIN 0.4 MG CAP.SR.24H PO SCH (22:49)
--- NOTE | 2016-07-16 22:49 | NUR ---
PER ASSESSMENT, PATIENT NEEDS LOVENOX AND FLOMAX, BOTH MEDICATIONS GIVEN
[2016-07-17] MEDS: clonazePAM 0.5 MG TABLET PO SCH ×4 (00:23→17:06)
--- NOTE | 2016-07-17 00:24 | NUR ---
PATIENT UNABLE TO SLEEP, RESTLESS, GIVEN CLONAZEPAM 0.25 MG PO, SAFETY MEASURE IN PLACE, WILL CONTINUE TO MONITOR.
--- NOTE | 2016-07-17 03:32 | NUR ---
PATIENT TRANSFERRED TO [facility]OFLEX BED.
--- NOTE | 2016-07-17 06:00 | NUR ---
KLONOPIN HELD, PATIENT IS CALM AT THIS TIME AND TO KEEP PATIENT ALERT AND AWAKE TO EAT BREAKFAST.
--- NOTE | 2016-07-17 06:24 | NUR ---
SEEN BY DR. LEAL FOR POSSIBLE SURGERY
--- NOTE | 2016-07-17 06:25 | NUR ---
PATIENT IN BED, ALERT AND AWAKE, GETS UPSET MANIFESTED BY SCREAMING WHEN TOUCH DURING ASSESSMENT OR DURING NURSING CARE, CALM WHEN LEFT ALONE, ASKED REPEATED IF IN PAIN, PATIENT DENIES ANY PAIN. REPOSITIONED Q2HRS, PROVIDED GOOD PERINEAL CARE, TRANSFERRED FROM TO TO BE OBSERVED FOR SAFETY, KEPT SAFE AND COMFORTABLE, CALL LIGHT WITHIN REACH.
[2016-07-17 06:34] LABS: HEMATOCRIT 33 % (39-51); HEMOGLOBIN 10.4 g/dL (13.5-17.5); LYMPHOCYTES % (AUTO) 14.1 % (20.0-44.0); MEAN CORPUSCULAR HEMOGLOBIN 28 PG (26.0-33.0); MEAN CORPUSCULAR HGB CONC 32 g/dl (31.0-36.0); MEAN CORPUSCULAR VOLUME 87 fL (80-96); NEUTROPHILS % (AUTO) 73.7 % (43.0-81.0); PLATELET COUNT (AUTO) 552 /CMM (150-450); RDW COEFFICIENT OF VARIATION 16.2 (11.5-15.0); RED BLOOD CELL COUNT(AUTO) 3.75 MIL/uL (4.5-6.0); WHITE BLOOD COUNT (AUTO) 9.8 K/uL (4.3-11.0)
[2016-07-17 06:35] LABS: BASOPHILS % (AUTO) 0.4 % (0.0-2.0); EOSINOPHILS # (AUTO) 0.2 /CMM (0.0-0.7); EOSINOPHILS % (AUTO) 1.8 % (0.0-6.0); LYMPHOCYTES # (AUTO) 1.4 /CMM (0.8-4.8); NEUTROPHILS # (AUTO) 7.2 /CMM (1.8-8.9)
[2016-07-17 06:54] LABS: THYROID STIMULATING HORMONE 2.366 uIU/mL (0.358-3.74)
[2016-07-17 07:19] LABS: POTASSIUM 4.1 mmol/L (3.5-5.1)
[2016-07-17 07:20] LABS: CALCIUM, SERUM 9.5 mg/dL (8.5-10.1); CREATININE 0.8 mg/dL (0.6-1.3); PHOSPHORUS 2.9 mg/dL (2.5-4.9)
--- NOTE | 2016-07-17 07:25 | NUR ---
MS RN OPENING RECEIVED PATIENT A/OX1 ALERT WILL NOT VERBALIZE NAME OR BUT WILL LOOK WHEN NAME IS SAID. PATIENT SPEAKING IS GARBLED AND SLURRED. PATIENT WILL RESPOND TO SOME QUESTIONS; IE ARE YOU IN PAIN "YES" AND WOULD YOU LIKE PAIN MEDICATIONS "YES"; WILL GIVE MORPHINE FOR PATIENT PAIN. S/S OF PAIN ARE PRESENT; GRIMACING AND YELLING OUT WHEN MOVED/TOUCHED. PATIENT NO S/S OF DIFFICULTY BREATHING OR SOB. ELEVATED BILATERAL HEELS FOR PREVENTION OF ULCERS. SLIGHT REDNESS ON HEELS NOTED BLANCHING. CALL LIGHT IN REACH, BED LOWERED AND LOCKED, RAILS UPX3 FOR SAFETY AND BED ALARM ON. ROOM CLOSE TO NURSE STATION. FREQUENT ROUNDING Q2H OR LESS PER NEEDS
[2016-07-17] MEDS: MORPHINE SULFATE INJ 2 MG/ML DISP.SYRIN IV PRN ×2 (07:28→22:49)
[2016-07-17] MEDS: PANTOPRAZOLE 40 MG TABLET.DR PO SCH (07:32)
[2016-07-17 08:00] VITALS: BP 156/84
[2016-07-17] MEDS: AMLODIPINE BESYLATE 2.5 MG TABLET PO SCH (08:15)
[2016-07-17] MEDS: QUETIAPINE FUMARATE 25 MG TABLET PO SCH ×3 (08:15→17:06)
[2016-07-17] MEDS: CARBIDOPA/LEVODOPA 25/100 MG 1 UDTAB PO SCH ×4 (08:16→21:47)
[2016-07-17] MEDS: Z GUARD REMEDY 2 OZ OINT TP PRN ×3 (08:16→17:06)
[2016-07-17] MEDS ORDERED: DIVALPROEX SODIUM 250 MG TABLET.DR PO SCH (09:00)
[2016-07-17] MEDS ORDERED: CLOPIDOGREL BISULFATE 75 MG TABLET PO SCH (09:00)
--- NOTE | 2016-07-17 11:00 | NUR ---
MS RN NOTES SON AT BEDSIDE AND UPDATED ON CARE PLAN. PER SON HE WAS TOLD PATIENT WAS SITTING AND COMPLAINING OF LEFT LEG PAIN WHICH IS WHY X RAYS WERE TAKEN FOR PATIENT. BUT ER REPORT STATES PATIENT FOUND LAYING ON FLOOR. MULTIPLE CALLS AND MESSAGE LEFT FOR CALL BACK
--- NOTE | 2016-07-17 11:16 | NUR ---
MS RN NOTES SPOKE WITH CEASAR NURSING SUP AT [facility] TO GET MORE INFORMATION ON WHAT HAPPENED BEFORE ADMISSION. PER CEASAR THE NURSE THAT WAS WITH PATIENT YESTERDAY IS NOT AVAILABLE. CEASAR READ NOTES THAT PATIENT WAS COMPLAINING OF LEFT HIP PAIN HE WAS SITTING IN THE WHEELCHAIR SO THEY TOOK A 3 VIEW X RAY OF LEFT HIP AND DIAGNOSED HIM AT 5PM WITH A RIGHT FEMORAL DISPLACEMENT..
[2016-07-17] MEDS ORDERED: IV SET PRIMARY PUMP SET 1 EA INFUS.SET MC ONE (12:26)
[2016-07-17] MEDS: IV NS 0.9% 1,000 ML IV PRN (12:30)
--- NOTE | 2016-07-17 15:07 | NUR ---
MS RN NOTES AT BEDSIDE.
[2016-07-17 16:00] VITALS: BP 140/68
[2016-07-17] MEDS: DIVALPROEX SODIUM 125 MG CAP.SPRINK PO SCH (17:06)
--- NOTE | 2016-07-17 18:24 | NUR ---
MS YOKO NOTES RECEIVED A CALL FROM [facility] PROCEDURE PLANNED FOR 5PM TOMORROW. NOTIFIED [facility] THAT SON WANTS TO SPEAK TO THEM TO DISCUSS IF SURGERY IS ABSOLUTELY NECESSARY OR NOT. [facility] WILL SPEAK WITH SON.
--- NOTE | 2016-07-17 18:49 | NUR ---
MS RN CLOSING PATIENT STABLE NO COMPLICATIONS NO CHANGES. PATIENT TURNED Q2H AND HEELS AND ELBOWS OFFLOADED THROUGHOUT DAY. PATIENT FAMILY IS SPEAKING WITH ORTHO TEAM AND WILL F.U IF SURGERY IS WANTED FOR PATIENT. ALL DUE MEDS GIVEN AND ALL NEEDS MET. PATIENT STABLE AT THIS TIME. PAIN MANAGED WITH NON PHARM AND PHARM MEASURES. MONITORING FOR S/S OF PAIN. AT THIS TIME PATIENT IS STATING "NO" TO HAVING PAIN OR WANTING PAIN MEDICATIONS. PATIENT IS AWAKE AT THIS TIME IN POSITION OF COMFORT. RAILS UPX3 FOR SAFETY, BED ALARM ON, CALL LIGHT IN REACH, TV ON FOR COMFORT AND IN ROOM VISUAL CLOSENESS TO RN STATION. WILL ENDORSE CARE TO RN FOR MARVA. SITTER ON STAND BY FOR PATIENT IF NEEDED.
[2016-07-17] MEDS: ENOXAPARIN SODIUM 40 MG/0.4 ML DISP.SYRIN SQ SCH (21:30)
[2016-07-17] MEDS: TAMSULOSIN 0.4 MG CAP.SR.24H PO SCH (21:47)
[2016-07-18] MEDS: clonazePAM 0.5 MG TABLET PO SCH ×4 (01:05→18:00)
--- NOTE | 2016-07-18 06:43 | NUR ---
PT REMAINED STABLE DURING FORENSIC IDENTIFICATION SPECIALIST, 1:1 AT BED SIDE, PT IS CLEAN/DRY AND COMFORTABLE, ENDORSED TO AM NURSE FOR MARVA.
[2016-07-18 06:56] LABS: BASOPHILS # (AUTO) 0.1 /CMM (0.0-0.2); BASOPHILS % (AUTO) 0.6 % (0.0-2.0); EOSINOPHILS # (AUTO) 0.2 /CMM (0.0-0.7); EOSINOPHILS % (AUTO) 2.2 % (0.0-6.0); HEMATOCRIT 31 % (39-51); LYMPHOCYTES # (AUTO) 1.7 /CMM (0.8-4.8); LYMPHOCYTES % (AUTO) 17.5 % (20.0-44.0); MEAN CORPUSCULAR HEMOGLOBIN 28 PG (26.0-33.0); MEAN CORPUSCULAR HGB CONC 32 g/dl (31.0-36.0); MEAN CORPUSCULAR VOLUME 87 fL (80-96); MONOCYTES # (AUTO) 1.1 /CMM (0.1-1.30); MONOCYTES % (AUTO) 11.1 % (2.0-12.0); NEUTROPHILS # (AUTO) 6.6 /CMM (1.8-8.9); NEUTROPHILS % (AUTO) 68.6 % (43.0-81.0); PLATELET COUNT (AUTO) 477 /CMM (150-450); RDW COEFFICIENT OF VARIATION 16.1 (11.5-15.0); RED BLOOD CELL COUNT(AUTO) 3.57 MIL/uL (4.5-6.0); WHITE BLOOD COUNT (AUTO) 9.6 K/uL (4.3-11.0)
[2016-07-18 07:21] LABS: ALBUMIN 2.2 g/dL (3.4-5.0); CALCIUM, SERUM 9.5 mg/dL (8.5-10.1); CREATININE 0.9 mg/dL (0.6-1.3); MAGNESIUM 2.1 mg/dL (1.8-2.4); PHOSPHORUS 3.2 mg/dL (2.5-4.9); POTASSIUM 3.7 mmol/L (3.5-5.1)
[2016-07-18 08:00] VITALS: BP 158/62
[2016-07-18] MEDS: QUETIAPINE FUMARATE 25 MG TABLET PO SCH ×3 (08:42→17:00)
[2016-07-18] MEDS: DIVALPROEX SODIUM 125 MG CAP.SPRINK PO SCH ×2 (08:42→17:58)
[2016-07-18] MEDS: PANTOPRAZOLE 40 MG TABLET.DR PO SCH (08:42)
[2016-07-18] MEDS: CARBIDOPA/LEVODOPA 25/100 MG 1 UDTAB PO SCH ×4 (08:44→21:47)
[2016-07-18] MEDS: AMLODIPINE BESYLATE 2.5 MG TABLET PO SCH (08:44)
--- NOTE | 2016-07-18 10:20 | NUR ---
dallas kang called and said surgery cancelled and to feed pt.
--- NOTE | 2016-07-18 11:00 | NUR ---
dr. ramachandran in to see pt.aware at this point family cancelled surgery.family in .
--- NOTE | 2016-07-18 11:15 | NUR ---
dr. ramachandran spent some time talking to family.
--- NOTE | 2016-07-18 11:30 | NUR ---
rn calling ortho service.spoke to jorge luis-says family now talking to pt,s about still possibly doing surgery.will let us know.
[2016-07-18] MEDS: IV NS 0.9% 1,000 ML IV PRN (11:33)
--- NOTE | 2016-07-18 14:00 | NUR ---
IV LEAKING,REMOVED,NEW ANGIO #[id number] RT. WRIST.
--- NOTE | 2016-07-18 15:30 | NUR ---
FAMILY IN,CONSENTS SIGNED FOR SURGERY TOMORROW.
[2016-07-18 16:00] VITALS: BP 142/67
[2016-07-18] MEDS: MORPHINE SULFATE INJ 2 MG/ML DISP.SYRIN IV PRN ×2 (16:22→20:12)
--- NOTE | 2016-07-18 16:28 | NUR ---
YELLING OUT,MEDICATED WITH MORPHINE.
[2016-07-18 16:30] VITALS: BP 142/67
--- NOTE | 2016-07-18 17:12 | NUR ---
LUAN PHELAN MAINTENANCE WORKER SWIMMING POOL IN TO SEE PT.
--- NOTE | 2016-07-18 19:30 | NUR ---
MS RN INITIAL NOTE RECEIVED PT AWAKE BUT CONFUSED, NON-VERBAL, WILL ENSURE PAIN IS UNDER CONTROL BY ANTICIPATING AND ATTENDING TO PT'S NEED, PT IS CLEAN/DRY AND COMFORTABLE, HE WILL BE REPOSITIONED EVERY 2 HOURS TO ENSURE SKIN INTEGRITY, SAFETY MEASURES WILL BE MAINTAINED AT ALL TIMES.
[2016-07-18 20:00] VITALS: BP 144/69
[2016-07-18] MEDS: TAMSULOSIN 0.4 MG CAP.SR.24H PO SCH (21:47)
[2016-07-18] MEDS: ENOXAPARIN SODIUM 40 MG/0.4 ML DISP.SYRIN SQ SCH (21:49)
[2016-07-19] MEDS: clonazePAM 0.5 MG TABLET PO SCH ×5 (00:04→23:33)
--- NOTE | 2016-07-19 06:45 | NUR ---
MS RN CLOSING NOTE PT REMAINED STABLE DURING POTTERY KILN BUILDER, PAIN WAS SUCCESSFULLY MANAGED WITH CURRENT PAIN MEDICATION ORDER, PT WAS REPOSITIONED EVERY TWO HOURS, ALL NEEDS WERE MET, WILL ENDORSE TO AM NURSE FOR MARVA.
--- NOTE | 2016-07-19 07:35 | NUR ---
RN Notes Received on bed with one on one sitter, sleeping but easily arousable. Not in any form of distress. No facial grimacing noted. On RA saturating at 97% with no SOB. With IV access on right hand gg 18 patent and intact. with ongoing IV NS at 60 cc/hr infusing well. Ensured safety while on bed.
[2016-07-19 08:00] VITALS: BP 144/83
--- NOTE | 2016-07-19 08:00 | NUR ---
RN Notes spoke with YOKO Escobedo if there is scheduled surgery for patient and she said none.
--- NOTE | 2016-07-19 08:15 | NUR ---
RN Notes left message to DARIA Sung to verify if patient will be schedule today for surgery. As per hired worker nur4se report, patient is on NPO post midnight in anticipation for possible surgery today. Waiting for his call back.
[2016-07-19] MEDS: PANTOPRAZOLE 40 MG TABLET.DR PO SCH (08:38)
[2016-07-19] MEDS: AMLODIPINE BESYLATE 2.5 MG TABLET PO SCH (08:38)
[2016-07-19] MEDS: QUETIAPINE FUMARATE 25 MG TABLET PO SCH ×3 (08:38→17:20)
[2016-07-19] MEDS: DIVALPROEX SODIUM 125 MG CAP.SPRINK PO SCH ×2 (08:38→17:20)
[2016-07-19] MEDS: CARBIDOPA/LEVODOPA 25/100 MG 1 UDTAB PO SCH ×4 (08:40→21:21)
--- NOTE | 2016-07-19 09:00 | NUR ---
RN Notes Spoke with answering services in the office of Dr Cross to confirm plan of care for patient and she said will leave a message to DARIA Sung.
--- NOTE | 2016-07-19 09:10 | NUR ---
RN Notes seen patient trying to get out of bed, screaming. Reorient patient back to reality and reminded about safety precaution. With one on one sitter. Ensured safety.
--- NOTE | 2016-07-19 10:33 | NUR ---
RN Notes Per PA Coury to feed patient now and will aim to sched surgery tomorrow morning
--- NOTE | 2016-07-19 11:00 | NUR ---
RN Notes Spoke with son asking update for surgical plan and informed him surgeons are aiming to do it tomorrow morning. Will notify for new update.
[2016-07-19] MEDS: IV NS 0.9% 1,000 ML IV PRN (12:55)
[2016-07-19 16:00] VITALS: BP 115/60
--- NOTE | 2016-07-19 18:06 | NUR ---
VANDANA Notes Sleeping at this time. Meals taken well. Per Pineda patient is already scheduled for surgery tomorrow at 7:30 in am. Needs anticipated. No untoward symptom noted within the shift. Will endorse to material handler 1st shift nurse for the continuity of care. Call light placed within easy reach.
--- NOTE | 2016-07-19 19:30 | NUR ---
RN NOTES RECEIVED PT AWAKE ON BED, A/OX1, SITTER AT BEDSIDE, NO PAIN NOTED, NO SOB, CONTINUE TO MONITOR
[2016-07-19 20:00] VITALS: BP 122/63
--- NOTE | 2016-07-19 20:30 | NUR ---
RN NOTES SPOKE TO DR. SHAH AND INFORMED HIM THAT PT IS GOING TO HAVE SURGERY TOMORROW . DR. SHAH ORDERED TO HOLD [facility] FOR ABBEIGHT, ORDER NOTED AND CARRIED OUT
[2016-07-19] MEDS: TAMSULOSIN 0.4 MG CAP.SR.24H PO SCH (21:21)
[2016-07-19] MEDS: ENOXAPARIN SODIUM 40 MG/0.4 ML DISP.SYRIN SQ SCH (21:30)
[2016-07-20] MEDS: IV NS 0.9% 1,000 ML IV PRN ×2 (03:44→21:19)
[2016-07-20] MEDS: clonazePAM 0.5 MG TABLET PO SCH ×3 (06:00→17:37)
[2016-07-20] MEDS ORDERED: BUPIVACAINE 0.25% 75 MG/30 ML VIAL ONE (06:46)
[2016-07-20] MEDS ORDERED: BACITRACIN 50000 UNITS/VIAL ONE (06:46)
--- NOTE | 2016-07-20 06:50 | NUR ---
RN NOTES PT. SEND TO OR, V/S STABLE
[2016-07-20] MEDS ORDERED: SEVOFLURANE 250 ML BOTTLE IH ONE (07:10)
[2016-07-20] MEDS ORDERED: DESFLURANE 240 ML BOTTLE IH ONE ×2 (07:10→07:18)
[2016-07-20] MEDS ORDERED: FENTANYL PF 100MCG/2ML AMPUL ONE (07:22)
[2016-07-20] MEDS ORDERED: ROCURONIUM BROMIDE 50 MG/5 ML ONE (07:22)
[2016-07-20] MEDS: PANTOPRAZOLE 40 MG TABLET.DR PO SCH (07:30)
--- NOTE | 2016-07-20 07:55 | NUR ---
MS YOKO INITIAL RECEIVED REPORT FROM HEEL SCOURER. PT IS IN SURGERY FOR RIGHT HIP ORIF
[2016-07-20] MEDS: DIVALPROEX SODIUM 125 MG CAP.SPRINK PO SCH ×2 (09:00→17:37)
[2016-07-20] MEDS: CARBIDOPA/LEVODOPA 25/100 MG 1 UDTAB PO SCH ×4 (09:00→21:16)
[2016-07-20] MEDS: AMLODIPINE BESYLATE 2.5 MG TABLET PO SCH (09:00)
[2016-07-20] MEDS: QUETIAPINE FUMARATE 25 MG TABLET PO SCH ×3 (09:00→15:20)
--- NOTE | 2016-07-20 10:08 | NUR ---
MS RN NOTES RECEIVED PT FROM OR. NO DRAINAGE COMING FROM WOUND VITALS ARE WNL AND WILL CONTINUE TO MONITOR EVERY 15 MIN FOR 2 HOURS. THERE IS AN ABDUCTOR PILLOW WITH IMMOBILIZATION OF THE RIGHT LEG. WILL CONTINUE TO MONITOR PT WAS SEEN BY LUAN PHELAN NP, ORDER GIVEN TO INSERT MCGUIRE FOR 24 HRS
[2016-07-20] MEDS: MORPHINE SULFATE INJ 2 MG/ML DISP.SYRIN IV PRN ×2 (11:48→15:01)
--- NOTE | 2016-07-20 15:34 | NUR ---
MS RN NOTES PT MEDS WERE HELP POST OP DUE TO DROWSINESS AND INABILITY TO REMAIN AWAKE FOR RISK OF ASPIRATION.
--- NOTE | 2016-07-20 15:36 | NUR ---
RN NOTES CONDOM CATH WAS PLACED ON PT
[2016-07-20 16:00] VITALS: BP 137/72
[2016-07-20] MEDS ORDERED: SECONDARY IV SET 1 EA INFUS.SET MC ONE ×3 (16:20→23:56)
[2016-07-20] MEDS: ANCEF 1 GM/50 ML D5W IV SCH ×2 (16:25)
[2016-07-20] MEDS ORDERED: IV SET PRIMARY PUMP SET 1 EA INFUS.SET MC ONE ×2 (17:04→17:06)
[2016-07-20 18:36] VITALS: BP 137/72
--- NOTE | 2016-07-20 19:05 | NUR ---
MS RN NOTES PT IS IN BED RELAXING. VITALS ARE WITHIN NORMAL LIMITS. IN NO APPARENT DISTRESS OR SOB. POST OP MONITORING, SURGICAL DRESSING ON LEFT HIP. ABDUCTOR PILLOW WITH IMMOBILIZATION OF RIGHT LEG. 2 MG OF MORPHINE WAS GIVEN AT 1501 PT IS INCONTINENT, HAS A MCGUIRE. USED CONDOM CATH BUT IT CONTINUED TO FALL OFF. CONTINUE TO MONITOR SITE AND VITALS
--- NOTE | 2016-07-20 19:30 | NUR ---
MS RN CLOSING NOTES PT IS RESTING IN BED. NO APPARENT DISTRESS OR SOB. PT HAS A ABDUCTOR PILLOW AND IMMOBILIZATION BRACE ON RIGHT LEG. WAS ABLE TO ADMINISTER ANCEF, KLONOPIN,SEROQUESL, ZOFRAN, MORPHINE POST OP MONITORING VITALS AND SURGICAL DRESSING
--- NOTE | 2016-07-20 19:30 | NUR ---
RN NOTES RECEIVED PT AWAKE ON BED, S/P RIGHT HIP ORIF, DRESSING IS INTACT, WITH ABDUCTION PILLOW, NO PAIN NOTED, NO SOB, SITTER AT BEDSIDE, SIDERAILS UPX2 CONTINUE TO MONITOR
[2016-07-20 20:00] VITALS: BP 137/61
[2016-07-20] MEDS: TAMSULOSIN 0.4 MG CAP.SR.24H PO SCH (21:16)
[2016-07-20] MEDS: ENOXAPARIN SODIUM 40 MG/0.4 ML DISP.SYRIN SQ SCH (21:19)
[2016-07-21] VITALS (8 sets, daily range): BP systolic 107–145; BP diastolic 51–90
[2016-07-21] MEDS: ANCEF 1 GM/50 ML D5W IV SCH ×2 (00:09)
[2016-07-21] MEDS: clonazePAM 0.5 MG TABLET PO SCH ×6 (00:10→23:11)
[2016-07-21] MEDS: MORPHINE SULFATE INJ 2 MG/ML DISP.SYRIN IV PRN (04:34)
--- NOTE | 2016-07-21 04:36 | NUR ---
RN NOTES NOTED PT. IS IN PAIN- MORPHINE 2MG IV GIVEN ORDERED, V/S STABLE
--- NOTE | 2016-07-21 06:34 | NUR ---
RN NOTES KLONOPIN 0.25 MG PO WAS NOT GIVEN PT. IS TOO SLEEPY
--- NOTE | 2016-07-21 06:35 | NUR ---
RN NOTES SLEEPING BUT AROUSABLE, MORNING CARE RENDERED, DRESSING ON THE RIGHT HIP DRY AND INTACT, PT. NEEDS ATTENDED. ENDORSED TO DAYSHIFT NURSE FOR CONTINUITY OF CARE
[2016-07-21 06:44] LABS: BASOPHILS % (AUTO) 0.2 % (0.0-2.0); EOSINOPHILS % (AUTO) 0.1 % (0.0-6.0); HEMATOCRIT 24 % (39-51); HEMOGLOBIN 7.7 g/dL (13.5-17.5); LYMPHOCYTES # (AUTO) 1.1 /CMM (0.8-4.8); LYMPHOCYTES % (AUTO) 6.7 % (20.0-44.0); MEAN CORPUSCULAR HEMOGLOBIN 27 PG (26.0-33.0); MEAN CORPUSCULAR HGB CONC 32 g/dl (31.0-36.0); MEAN CORPUSCULAR VOLUME 86 fL (80-96); MONOCYTES # (AUTO) 2.6 /CMM (0.1-1.30); MONOCYTES % (AUTO) 15.8 % (2.0-12.0); NEUTROPHILS # (AUTO) 12.7 /CMM (1.8-8.9); NEUTROPHILS % (AUTO) 77.2 % (43.0-81.0); PLATELET COUNT (AUTO) 414 /CMM (150-450); RDW COEFFICIENT OF VARIATION 15.7 (11.5-15.0); RED BLOOD CELL COUNT(AUTO) 2.81 MIL/uL (4.5-6.0); WHITE BLOOD COUNT (AUTO) 16.4 K/uL (4.3-11.0)
[2016-07-21 07:05] LABS: LYMPHOCYTES % (MANUAL) 6 % (16-48); MONOCYTES % (MANUAL) 13 % (0-11.0); NEUTROPHILS % (MANUAL) 81 (42-76)
[2016-07-21 07:06] LABS: PLATELET ESTIMATE ADEQUATE
[2016-07-21 07:08] LABS: ALBUMIN 1.8 g/dL (3.4-5.0); BILIRUBIN,TOTAL 0.2 mg/dL (0.2-1.0); MAGNESIUM 1.8 mg/dL (1.8-2.4); POTASSIUM 4.4 mmol/L (3.5-5.1); TOTAL PROTEIN, SERUM 5.8 g/dL (6.4-8.2)
--- NOTE | 2016-07-21 07:10 | NUR ---
MS RN NOTES RECEIVED PATIENT IN BED SLEEPING, AROUSES EASILY. ON OXYGEN AT 2L/MIN VIA NC, NO SOB NOTED. RIGHT HIP INCISION, DRESSING IN PLACE. NO BLEEDING NOTED. IMMOBILIZER AND ABDUCTION PILLOW IN PLACE, TOLERATING WELL. CALL LIGHT WITHIN REACH. WILL CONT TO MONITOR.
[2016-07-21] MEDS ORDERED: ASPIRIN 325 MG TABLET PO SCH (09:00)
[2016-07-21] MEDS: AMLODIPINE BESYLATE 2.5 MG TABLET PO SCH (09:05)
[2016-07-21] MEDS: DIVALPROEX SODIUM 125 MG CAP.SPRINK PO SCH ×2 (09:05→18:09)
[2016-07-21] MEDS: QUETIAPINE FUMARATE 25 MG TABLET PO SCH ×3 (09:05→17:00)
[2016-07-21] MEDS: PANTOPRAZOLE 40 MG TABLET.DR PO SCH (09:05)
[2016-07-21] MEDS: CARBIDOPA/LEVODOPA 25/100 MG 1 UDTAB PO SCH ×4 (09:08→20:58)
[2016-07-21] MEDS: ASPIRIN 81 MG TAB.CHEW PO SCH (09:13)
--- NOTE | 2016-07-21 12:43 | NUR ---
PATIENT CURRENTLY ON PURRED DIET, NOTED WITH EPISODE OF COUGHING AFTER EACH TIME HE SWALLOWED PUREED FOOD. PATIENT IS SEEN BY MOUNA ORDERED TO TRANSFUSE [address] EVAL STAT, NOTED AND ACKNOWLEDGED. PER OMUNA, PATIENT TO BE DISCHARGED TO [facility] AFTER SWALLOW EVAL AND BLOOD TRANSFUSION.
--- NOTE | 2016-07-21 12:45 | NUR ---
PER MOUNA, TRANSFUSE 1 UNIT ONLY OF PRBC.
[2016-07-21] MEDS ORDERED: BLOOD IV SET 1 EA INFUS.SET MC ONE (12:56)
[2016-07-21] MEDS ORDERED: IV NS 0.9% 250 ML IV ONE (13:03)
--- NOTE | 2016-07-21 14:47 | NUR ---
PATIENT IS SEEN BY PRICILLA TODAY FOR EVAL. RECOMMEND NECTAR THICK LIQUID PUREED DIET. PATIENT TOLERATED SWALLOW EVAL.
[2016-07-21 15:15] LABS: IRON, SERUM 8 ug/dl (50-175); TOTAL IRON BINDING CAPACITY 150 ug/dl (250-450)
[2016-07-21] MEDS ORDERED: ACETAMINOPHEN ES 500 MG TABLET PO ONE (15:30)
[2016-07-21] MEDS ORDERED: IV NS 0.9% 250 ML BAG IV ONE (15:30)
--- NOTE | 2016-07-21 15:33 | NUR ---
ELEVATED TEMP 100.8 COOLING MEASURES PROVIDED. CALLED SPOKE TO POT FILLER-ZHANE ORDERED CHEST XRAY STAT, TYLENOL 1GM PO PRN FOR FEVER, NS 250ML IV X1 THEN CANCELLED, PER POT FILLER CHECK URINE-DO STRAIGHT CATH TO COLLECT. MAY CONTINUE TO GIVE BLOOD TRANSFUSION. WILL CONT TO MONITOR PATIENT.
--- NOTE | 2016-07-21 16:06 | NUR ---
TEMP 100.1 AFTER COOLING MEASURE AND TYLENOL 1000MG PO PRN. PER PHILOSOPHY LECTURER OK TO TRANSFUSE BLOOD TO THE PATIENT. WILL CONT TO MONITOR CLOSELY.
--- NOTE | 2016-07-21 16:09 | NUR ---
V/S TAKEN AND RECORDED, BLOOD TRANSFUSION 1 UNITS PRBC STARTED ORDERED. WILL CONT TO MONITOR PATIENT CLOSELY.
[2016-07-21 16:21] LABS: FERRITIN 153 ng/mL (8-388)
--- NOTE | 2016-07-21 16:28 | NUR ---
TEMP 100 PATIENT IS AWAKE, WITH CONFUSION. BREATHING EVEN AND NON LABORED, NO FACIAL GRIMACE. APPEARS CALM. NO C/O CHEST PAIN, NO SOB NOTED. WILL CONT TO MONITOR CLOSELY.
--- NOTE | 2016-07-21 17:01 | NUR ---
TEMP ORAL IS NOW 98.5 URINE COLLECTED AND SEND TO LAB FOR URINALYSIS ORDERED. CHEST XRAY RESULTED SPOKE TO MOUNA, ORDERED BMP CBC TO TOMORROW 07/22/16, NOTED AND ACKNOWLEDGED.
--- NOTE | 2016-07-21 18:06 | NUR ---
SEROQUEL AND KLONOPIN NON ADMINISTERED, PATIENT APPEARS SLEEPY.
[2016-07-21 18:33] LABS: APPEARANCE,URINE CLEAR (CLEAR); BILIRUBIN,URINE NEGATIVE (NEGATIVE); BLOOD, URINE TRACE-INTA Ery/uL (NEGATIVE); COLOR,URINE YELLOW (YELLOW); KETONES,URINE NEGATIVE (NEGATIVE); LEUKOCYTE ESTERASE ,URINE NEGATIVE (NEGATIVE); NITRITE, URINE NEGATIVE (NEGATIVE); PH,URINE 5.5 (5.0-8.0); PROTEIN,URINE TRACE mg/dl (NEGATIVE); UGLUCOSE NEGATIVE (NEGATIVE); UROBILINOGEN,URINE 0.2 EU/dL (0.2)
--- NOTE | 2016-07-21 18:42 | NUR ---
MS RN NOTES PATIENT IN BED, SLEEPING INTERMITTENTLY, AROUSES EASILY. BLOOD TRANSFUSION IN PROGRESS WITH NO S/S OF ADVERSE SIDE EFFECT. PATIENT IS SEEN BY PT TODAY, PER PT PATIENT IS TOTAL ASSIST. PATIENT DOES NOT FOLLOW COMMANDS, WITH CONFUSION. TOLERATING CURRENT DIET PUREED NECTAR THICK LIQUIDS, ASPIRATION PRECAUTION OBSERVED. KNEE IMMOBILIZER AND ABDUCTION WEDGE IN PLACE. APPEARS COMFORTABLE, CALM IN BED, NO FACIAL GRIMACE. CALL LIGHT WITHIN REACH. WILL ENDORSE TO AUTO BODY TECHNICIAN RN FOR CONTINUITY OF CARE.
[2016-07-21 18:46] LABS: RBC,URINE 0-2 /HPF (0-2); SQUAMOUS EPITHELIAL CELL,UR Rare /HPF (None Seen)
[2016-07-21 18:48] LABS: ADD URINE CULTURE NO; BACTERIA,URINE Rare /HPF (None Seen)
--- NOTE | 2016-07-21 18:57 | NUR ---
POST BLOOD TRANSFUSION 1 UNIT PRBC. PATIENT REMAINS STABLE WITH NO S/S OF ADVERSE SIDE EFFECT. WILL ENDORSE TO MARKETING WRITER RN FOR CONTINUITY OF CARE.
--- NOTE | 2016-07-21 19:35 | NUR ---
MS RN NOTES ON BED WITH HOB ELEVATED,A/O X1, CONFUSED,OPEN EYES TO NAME AND TOUCH.INCONTINENT OF URINE.S/P RIGHT HEMIARTHROPLASTY,DRESSING INTACT AND DRY.DRESSING CHANGE TO BE DONE TOMORROW BY HOLLOW TILE PARTITION ERECTOR.S/P BLOOD TRANSFUSION OF 1 UNIT PRBC,LABS IN THE MORNING.WITH SITTER AT BEDSIDE,HIGH RISK FOR FALL.WILL CONTINUE TO MONITOR STATUS.
--- NOTE | 2016-07-21 20:00 | NUR ---
MS RN NOTES O2 IN USED AT 2 LITERS TO KEEP O2 SAT ABOVE 90%.DVT PUMP IN USED FOR DVT PROPHYLAXIS
--- NOTE | 2016-07-21 20:30 | NUR ---
MS RN NOTES REPOSITION TO LEFT SIDE,ABDUCTION PILLOW IN PLACE.
[2016-07-21] MEDS: TAMSULOSIN 0.4 MG CAP.SR.24H PO SCH (20:59)
[2016-07-21] MEDS: ENOXAPARIN SODIUM 40 MG/0.4 ML DISP.SYRIN SQ SCH (21:00)
--- NOTE | 2016-07-21 21:00 | NUR ---
MS RN NOTES DUE PO MEDS GIVEN WITH THICKENER,TAKEN WELL,NEGATIVE FOR ASPIRATION
--- NOTE | 2016-07-21 23:11 | NUR ---
MS RN NOTES YELLING,MEDICATED EARLY WITH KLONOPIN 0.25MG PO WITH APPLE SAUCE FOR ANXIETY.
--- NOTE | 2016-07-22 01:07 | NUR ---
MS RN NOTES ASLEEP AT THIS TIME,SITTER AT BEDSIDE.
--- NOTE | 2016-07-22 03:00 | NUR ---
MS RN NOTES REMAINS ASLEEP.KEPT WARM AND COMFORTABLE.SITTER AT BEDSIDE.
--- NOTE | 2016-07-22 06:07 | NUR ---
MS RN NOTES SLEPT WELL AT NIGHT, AFEBRILE,REPOSITION PER PROTOCOL,DRESSING CHANGE TO RIGHT HIP TO BE DONE TODAY BY NETWORK PROGRAM MANAGER.IN NO ACUTE DISTRESS.WILL ENDORSE TO DAY NURSE FOR MARVA.
[2016-07-22] MEDS: clonazePAM 0.5 MG TABLET PO SCH ×3 (06:20→17:33)
--- NOTE | 2016-07-22 06:20 | NUR ---
MS RN NOTES STARTED YELLING.DUE KLONOPIN 0.25MG MG PO GIVEN WITH APPLE SAUCE AND THICKENER,TAKEN WELL.NEGATIVE FOR ASPIRATION
[2016-07-22 06:38] LABS: BASOPHILS # (AUTO) 0.1 /CMM (0.0-0.2); BASOPHILS % (AUTO) 0.3 % (0.0-2.0); EOSINOPHILS # (AUTO) 0.1 /CMM (0.0-0.7); EOSINOPHILS % (AUTO) 0.6 % (0.0-6.0); HEMATOCRIT 26 % (39-51); HEMOGLOBIN 8.6 g/dL (13.5-17.5); LYMPHOCYTES % (AUTO) 5.3 % (20.0-44.0); MEAN CORPUSCULAR HEMOGLOBIN 28 PG (26.0-33.0); MEAN CORPUSCULAR HGB CONC 33 g/dl (31.0-36.0); MEAN CORPUSCULAR VOLUME 86 fL (80-96); MONOCYTES # (AUTO) 2.4 /CMM (0.1-1.30); MONOCYTES % (AUTO) 12.6 % (2.0-12.0); NEUTROPHILS # (AUTO) 15.3 /CMM (1.8-8.9); NEUTROPHILS % (AUTO) 81.2 % (43.0-81.0); PLATELET COUNT (AUTO) 356 /CMM (150-450); RDW COEFFICIENT OF VARIATION 15.5 (11.5-15.0); RED BLOOD CELL COUNT(AUTO) 3.07 MIL/uL (4.5-6.0); WHITE BLOOD COUNT (AUTO) 18.9 K/uL (4.3-11.0)
[2016-07-22 06:55] LABS: ALBUMIN 1.6 g/dL (3.4-5.0); BILIRUBIN,TOTAL 0.4 mg/dL (0.2-1.0); CALCIUM, SERUM 9.2 mg/dL (8.5-10.1); CREATININE 0.8 mg/dL (0.6-1.3); MAGNESIUM 1.8 mg/dL (1.8-2.4); PHOSPHORUS 2.8 mg/dL (2.5-4.9); POTASSIUM 3.6 mmol/L (3.5-5.1); TOTAL PROTEIN, SERUM 5.8 g/dL (6.4-8.2)
--- NOTE | 2016-07-22 07:22 | NUR ---
AM RN NOTE Received patient sleeping comofrtably in his bed. On O2 2L/min via NC Resp even and non-labored. IV site intact and patent. S/P right hemiarthroplasty, dressing intact and wedge pillow in between legs. 1:1 sitter at pt's side. Bed in low locked position.
[2016-07-22] MEDS: PANTOPRAZOLE 40 MG TABLET.DR PO SCH (07:48)
[2016-07-22] MEDS: ASPIRIN 81 MG TAB.CHEW PO SCH (07:49)
[2016-07-22] MEDS: QUETIAPINE FUMARATE 25 MG TABLET PO SCH ×3 (07:49→17:33)
[2016-07-22] MEDS: DIVALPROEX SODIUM 125 MG CAP.SPRINK PO SCH ×2 (07:49→17:33)
[2016-07-22] MEDS: AMLODIPINE BESYLATE 2.5 MG TABLET PO SCH (07:50)
[2016-07-22] MEDS: CARBIDOPA/LEVODOPA 25/100 MG 1 UDTAB PO SCH ×4 (07:53→21:01)
[2016-07-22 08:00] VITALS: BP 131/65
[2016-07-22] MEDS ORDERED: SOD FERRIC GLUC 125 MG in IV NS 0.9% 100 ML IV SCH (14:00)
[2016-07-22] MEDS ORDERED: IV SET PRIMARY PUMP SET 1 EA INFUS.SET MC ONE (14:05)
--- NOTE | 2016-07-22 15:52 | NUR ---
AM RN NOTE Patient resting in his bed comfortably, no acute distress noted. Seen and assessed by Cyrus FLIGHT ATTENDANT/INFLIGHT SUPERVISOR and he spoke with Son ([place]) over the phone. Called Kristin (TAYLER) to call son regarding discharge planning per Cyrus FLIGHT ATTENDANT/INFLIGHT SUPERVISOR. 1:1 sitter @pt's site. Called Pineda HUFF (Ortho) and he will come in 2-3 hrs to change dressing S/P right hip hemiarthroplasty. Will continue to monitor.
[2016-07-22 16:07] VITALS: BP 110/61
[2016-07-22] MEDS: BOOST PLUS FOOD-VANILLA 237 ML BOX PO SCH (17:33)
--- NOTE | 2016-07-22 17:41 | NUR ---
AM RN NOTE Patient seen and assessed by Pineda HUFF (Ortho) and dressing changed by him on surgical site. New order given by Pineda HUFF ok to discharge to rehab/SNF and F/U with Dr. Cross in 1-2 weeks.
--- NOTE | 2016-07-22 18:30 | NUR ---
AM RN NOTE Patient resting in his bed comfortably, no acute distress noted. On o2 2L/min via NC. IV site intact and patent. 1:1 sitter @ pt's site. Abduction pillow in place in between legs. Will endorse care to next shift.
[2016-07-22 19:00] VITALS: BP 151/66
--- NOTE | 2016-07-22 19:15 | NUR ---
MS RN NOTES RECEIVED ON BED SLEEPING,AROUSABLE TO VERBAL STIMULI,BREATHING NON LABORED,SKIN WARN AND DRY TO THE TOUCH,AFEBRILE.S/P RIGHT HIP GILBERTO ARTHROPLASTY ON 07/[address] MARSHALL.DRESSING INTACT AND DRY.FIRST DRESSING CHANGED DONE TODAY BY CONCHIS.ABDUCTION PILLOW IN USED.DVT PUMP IN USED FOR DVT PROHYLAXIS.WILL CONTINUE TO MONITOR STATUS.
[2016-07-22 20:00] VITALS: BP 151/66
--- NOTE | 2016-07-22 21:00 | NUR ---
MS RN NOTES DUE PO MEDS GIVEN WITH APPLE SAUCE,TAKEN WELL.NEGATIVE FOR ASPIRATION
[2016-07-22] MEDS: TAMSULOSIN 0.4 MG CAP.SR.24H PO SCH (21:01)
[2016-07-22] MEDS: ENOXAPARIN SODIUM 40 MG/0.4 ML DISP.SYRIN SQ SCH (21:07)
--- NOTE | 2016-07-23 04:30 | NUR ---
MS RN NOTES MOUTH CARE RENDERED.NOTED LOTS OF MUCUS ,SUCTION NEEDED.
[2016-07-23] MEDS: clonazePAM 0.5 MG TABLET PO SCH ×3 (05:57→12:57)
--- NOTE | 2016-07-23 06:00 | NUR ---
MS RN NOTES ANXIOUS,YELLS,DUE KLONOPIN 0.25MG PO GIVEN SCHEDULED
--- NOTE | 2016-07-23 06:47 | NUR ---
MS RN NOTES NO SIGNIFICANT CHANGE IN STATUS.A/O X1,D/C PLAN TO SNF,AWAITING FOR PLACEMENT.DNR STATUS.NEEDS ATTENDED.WILL ENDORSE TO DAY NURSE FOR MARVA.
--- NOTE | 2016-07-23 07:26 | NUR ---
AM RN NOTE Received patient sleeping comfortably in his bed, no acute distress noted. On O2 2L/min via NC. Resp even and non-labored. Skin warm and dry to touch. S/P right hemiarthroplasty on 07/20/16, dressing intact. 1:1 sitter @ bedside. Bed in low locked position. Will continue to monitor.
[2016-07-23] MEDS: ASPIRIN 81 MG TAB.CHEW PO SCH (07:54)
[2016-07-23] MEDS: BOOST PLUS FOOD-VANILLA 237 ML BOX PO SCH (07:54)
[2016-07-23] MEDS: AMLODIPINE BESYLATE 2.5 MG TABLET PO SCH (07:55)
[2016-07-23] MEDS: DIVALPROEX SODIUM 125 MG CAP.SPRINK PO SCH (07:55)
[2016-07-23] MEDS: QUETIAPINE FUMARATE 25 MG TABLET PO SCH ×2 (07:55→12:57)
[2016-07-23] MEDS: PANTOPRAZOLE 40 MG TABLET.DR PO SCH (07:55)
[2016-07-23] MEDS: CARBIDOPA/LEVODOPA 25/100 MG 1 UDTAB PO SCH ×2 (07:55→12:57)
[2016-07-23 08:00] VITALS: BP 102/53
--- NOTE | 2016-07-23 13:00 | NUR ---
AM RN NOTE Patient awake lying in his bed. No acute distress noted. Seen and assessed by Cyrus REED OR WIND INSTRUMENT TUNER with new order for discharge to [facility]. Bed confirmed by Kristin WOODS Son ([place]ver) made aware about discharge order. Called [facility] spoke with Elissa BABCOCK report given on pt. Called ambulance, P/U time 2-2:30 PM. Skin pictures taken and placed in chart. Dressing on surgical site clean and intact. Will continue to monitor. 1:1 sitter @ pt's side.
--- NOTE | 2016-07-23 14:15 | NUR ---
AM RN NOTE Patient awake lying in his bed, on O2 2L/min via NC. Report given to EMT's and Vital signs taken by EMT's stable. HL & ID band removed. Patient left via osbaldorsalena with abductor wedge in place in between his legs at this time as accompanied to 2 EMT's to [facility]. Addendum: 07/23/16 at 1429 by JUDAH DELANEY RN Pt left @ 1429.
[2016-07-24] MEDS ORDERED: LACT-15 PO ×2 (09:47→09:52)
[2016-07-24] MEDS ORDERED: HYDR-548 PO (09:52)
== END 2016-07-23 14:27 | DRG 469 ==
LOC: ER 20:03 → MEDSG2 20:46
PROC: 0SRR0JZ Replacement of Right Hip Joint, Femoral Surface with Synthetic Substitute, Open Approach (ICD-10-PCS; principal; 2016-07-20 07:30)
PROC: 30233N1 Transfusion of Nonautologous Red Blood Cells into Peripheral Vein, Percutaneous Approach (ICD-10-PCS; 2016-07-21)
DX: S72.011A Unspecified intracapsular fracture of right femur, initial encounter for closed fracture (principal); E43 Unspecified severe protein-calorie malnutrition; Z68.1 Body mass index [BMI] 19.9 or less, adult; I10 Essential (primary) hypertension; I25.10 Atherosclerotic heart disease of native coronary artery without angina pectoris; E78.5 Hyperlipidemia, unspecified; F02.80 Dementia in other diseases classified elsewhere, unspecified severity, without behavioral disturbance, psychotic disturbance, mood disturbance, and anxiety; G20 Parkinson's disease; N40.0 Benign prostatic hyperplasia without lower urinary tract symptoms; D64.9 Anemia, unspecified; N20.0 Calculus of kidney; K21.9 Gastro-esophageal reflux disease without esophagitis; F29 Unspecified psychosis not due to a substance or known physiological condition; L89.621 Pressure ulcer of left heel, stage 1; Z86.73 Personal history of transient ischemic attack (TIA), and cerebral infarction without residual deficits; Z87.442 Personal history of urinary calculi; W19.XXXA Unspecified fall, initial encounter; Y92.128 Other place in nursing home as the place of occurrence of the external cause; I73.9 Peripheral vascular disease, unspecified; D50.0 Iron deficiency anemia secondary to blood loss (chronic); D75.89 Other specified diseases of blood and blood-forming organs; D63.8 Anemia in other chronic diseases classified elsewhere; R29.6 Repeated falls; D72.829 Elevated white blood cell count, unspecified; S50.11XA Contusion of right forearm, initial encounter; S50.12XA Contusion of left forearm, initial encounter; Z91.81 History of falling
CPT/HCPCS: 36415; 71010-TC; 73080-TC; 73510-TC; 80048-TC; 80053-TC; 80061-TC; 81000-TC; 82040-TC; 82728-TC; 83540-TC; 83735-TC; 84100-TC; 84443-TC; 84484-TC; 85025-TC; 85730-TC; 86850-TC; 86921-TC; 87081-TC; 88305-TC; 88311-TC; 92611-TC; 93307-TC; 97001-TC; 97110-TC; 97530-TC; A4349; A4606; J0690; J1650; J2270; J2405; J2704; J2916; J3010; J3490; J7030; J7050; J7060; P9016-BL; Z7610

== ENCOUNTER 2016-07-23 22:06 | Inpatient (IN) | payer MEDICARE, OTHER, MEDICAID ==
[~2016-07-23] VITALS: Ht 177.8 cm; Wt 52.8 kg
[~2016-07-23 22:06] MED LIST changes: -AMIN30LI4 PO; +CLON0.5T PO; +DIVA250T PO; -GLUC100017 PO; +MAG355OR18 PO; +MELA3TAB PO; -NA P133E RC; +QUET25TA PO
[2016-07-23] MEDS ORDERED: ACETAMINOPHEN 650 MG/SUPP.RECT RC ONE ×2 (22:25→22:30)
[2016-07-23] MEDS ORDERED: LEVOFLOXACIN 750 MG /D5W 150ML 0 ML IV ONE (22:26)
[2016-07-23] MEDS ORDERED: IV SET PRIMARY PUMP SET 1 EA INFUS.SET MC ONE ×3 (22:26→23:56)
[2016-07-23] MEDS ORDERED: IV NS 0.9% 500 ML IV ONE (22:26)
[2016-07-23] MEDS ORDERED: LEVOFLOXACIN 750 MG /D5W 150ML PIGGYBACK IV ONE (22:30)
[2016-07-23] MEDS ORDERED: IV NS 0.9% 500 ML BAG IV ONE (22:30)
[2016-07-23] MEDS ORDERED: IV NS 0.9% 1,000 ML ONE (22:42)
[2016-07-23] MEDS ORDERED: IV SET PRIMARY 1 EA INFUS.SET MC ONE (22:42)
[2016-07-23] MEDS ORDERED: LEVOFLOXACIN 750 MG /D5W 150ML 150 ML IV ONE (22:42)
[2016-07-23 22:43] LABS: BASOPHILS % (AUTO) 0.1 % (0.0-2.0); EOSINOPHILS % (AUTO) 0.1 % (0.0-6.0); HEMATOCRIT 30 % (39-51); HEMOGLOBIN 9.8 g/dL (13.5-17.5); LYMPHOCYTES # (AUTO) 0.1 /CMM (0.8-4.8); LYMPHOCYTES % (AUTO) 1.5 % (20.0-44.0); MEAN CORPUSCULAR HEMOGLOBIN 28 PG (26.0-33.0); MEAN CORPUSCULAR HGB CONC 33 g/dl (31.0-36.0); MEAN CORPUSCULAR VOLUME 84 fL (80-96); MONOCYTES # (AUTO) 0.4 /CMM (0.1-1.30); MONOCYTES % (AUTO) 4.3 % (2.0-12.0); NEUTROPHILS # (AUTO) 7.7 /CMM (1.8-8.9); PLATELET COUNT (AUTO) 509 /CMM (150-450); RDW COEFFICIENT OF VARIATION 16.4 (11.5-15.0); RED BLOOD CELL COUNT(AUTO) 3.55 MIL/uL (4.5-6.0); WHITE BLOOD COUNT (AUTO) 8.2 K/uL (4.3-11.0)
[2016-07-23 22:45] VITALS: BP 131/58
[2016-07-23 22:53] LABS: CALCIUM, SERUM 9.8 mg/dL (8.5-10.1); CREATININE 1.2 mg/dL (0.6-1.3); POTASSIUM 3.3 mmol/L (3.5-5.1)
[2016-07-23] MEDS ORDERED: IV NS 0.9% 1,000 ML BAG IV ONE (23:00)
[2016-07-23 23:03] LABS: INR 1.01 (0.87-1.13); PROTHROMBIN TIME 10.8 SECS (9.5-12.7); TROPONIN I 0.464 ng/mL (0.00-0.056)
[2016-07-23 23:10] LABS: ALBUMIN 1.8 g/dL (3.4-5.0); BILIRUBIN,DIRECT 0.2 mg/dL (0.0-0.2); BILIRUBIN,TOTAL 0.7 mg/dL (0.2-1.0); TOTAL PROTEIN, SERUM 6.9 g/dL (6.4-8.2)
[2016-07-23] MEDS ORDERED: IV NS 0.9% 250 ML IV ONE (23:22)
[2016-07-23] MEDS ORDERED: IOHEXOL-350 100 ML VIAL IV ONE (23:22)
[2016-07-23] MEDS ORDERED: VANCOMYCIN 1 GM in IV D5W 250 ML IV PRN (23:30)
[2016-07-23] MEDS ORDERED: PIPERACILLIN /TAZOBACTAM 3.375 G VIAL IV ONE (23:56)
[2016-07-23 23:57] LABS: BAND % (MANUAL) 48 % (0.0-5.0); LYMPHOCYTES % (MANUAL) 2 % (16-48); MONOCYTES % (MANUAL) 2 % (0-11.0); NEUTROPHILS % (MANUAL) 48 (42-76)
[2016-07-24] MEDS ORDERED: PIPERACILLIN /TAZOBACTAM 3.375 G in IV D5W 50 ML IV SCH ×2
[2016-07-24] MEDS ORDERED: IV SET PRIMARY PUMP SET 1 EA INFUS.SET MC ONE ×2 (00:23→01:36)
[2016-07-24] MEDS ORDERED: VANCOMYCIN 1 GM VIAL ONE (00:23)
[2016-07-24] MEDS ORDERED: ASPIRIN 300 MG/SUPP.RECT RC ONE (00:23)
[2016-07-24] MEDS ORDERED: ASPIRIN 300 MG/SUPP.RECT RC SCH (00:30)
[2016-07-24] MEDS ORDERED: ACETAMINOPHEN 325 MG TABLET PO PRN (01:00)
[2016-07-24] MEDS ORDERED: ZOLPIDEM TARTRATE 5 MG TABLET PO PRN (01:00)
[2016-07-24] MEDS ORDERED: BISACODYL SUPP (10 MG) 10 MG/SUPP.RECT SUPP.RECT RC PRN (01:00)
[2016-07-24] MEDS ORDERED: PANTOPRAZOLE 40 MG TABLET.DR PO SCH (01:00)
[2016-07-24] MEDS ORDERED: HYDROCODONE/APAP 5/325MG 1 EACH TABLET PO PRN (01:00)
[2016-07-24] MEDS ORDERED: ONDANSETRON HCL/PF 4 MG/2 ML VIAL IVP PRN (01:00)
[2016-07-24] MEDS ORDERED: MAG HYDROX/AL HYDROX/SIMETH 30 ML UDC PO PRN (01:00)
[2016-07-24] MEDS ORDERED: QUETIAPINE FUMARATE 25 MG TABLET PO PRN (01:00)
[2016-07-24] MEDS ORDERED: MAGNESIUM HYDROXIDE 30 ML UDC PO PRN (01:00)
[2016-07-24] MEDS ORDERED: Z GUARD REMEDY 2 OZ OINT TP PRN (01:00)
[2016-07-24] MEDS ORDERED: ENOXAPARIN SODIUM 40 MG/0.4 ML DISP.SYRIN SQ SCH (01:00)
[2016-07-24 01:01] VITALS: BP 105/54
[2016-07-24] MEDS ORDERED: IV NS 0.9% 1,000 ML ONE (01:36)
[2016-07-24] MEDS ORDERED: ENOXAPARIN SODIUM 40 MG/0.4 ML DISP.SYRIN SQ ONE (01:36)
[2016-07-24] MEDS ORDERED: PANTOPRAZOLE 40 MG VIAL IV SCH (02:00)
[2016-07-24] MEDS: IV NS 0.9% 1,000 ML IV PRN ×2 (02:01→17:53)
[2016-07-24 04:00] VITALS: BP 114/65
[2016-07-24] MEDS ORDERED: PIPERACILLIN /TAZOBACTAM 4.5 G in IV D5W 50 ML IV SCH (05:00)
[2016-07-24] MEDS ORDERED: clonazePAM 0.5 MG TABLET PO SCH (06:00)
[2016-07-24] MEDS ORDERED: PIPERACILLIN /TAZOBACTAM 2.25 G VIAL IV ONE (06:01)
[2016-07-24] MEDS ORDERED: SECONDARY IV SET 1 EA INFUS.SET MC ONE (06:01)
[2016-07-24] MEDS ORDERED: IV D5W 50 ML IV ONE (06:01)
[2016-07-24 08:00] VITALS: BP 114/55
[2016-07-24] MEDS: CARBIDOPA/LEVODOPA 25/100 MG 1 UDTAB PO SCH ×4 (09:00→21:00)
[2016-07-24] MEDS: QUETIAPINE FUMARATE 25 MG TABLET PO SCH ×3 (09:00→16:01)
[2016-07-24] MEDS: DIVALPROEX SODIUM 250 MG TABLET.DR PO SCH ×2 (09:00→16:01)
[2016-07-24] MEDS: AMLODIPINE BESYLATE 2.5 MG TABLET PO SCH (09:00)
[2016-07-24] MEDS: CLOPIDOGREL BISULFATE 75 MG TABLET PO SCH (09:00)
[2016-07-24] MEDS: PANTOPRAZOLE 40 MG VIAL IV SCH (09:42)
[2016-07-24] MEDS ORDERED: LACT-15 PO ×2 (09:47→09:52)
[2016-07-24 09:49] LABS: ABG OXYGEN SATURATION 94.8 % (92.0-98.5); ABG PCO2 33.9 mmHg (35.0-45.0); ABG PH 7.505 (7.350-7.450); ABG PO2 76.4 mmHg (75.0-100.0); MetHb 0.8 % (0.0-1.5); O2Hb 93.1 % (94.0-97.0); SITE, ABG Right Radial; VENT MODE, BG NASAL CANNULA
[2016-07-24] MEDS ORDERED: HYDR-548 PO (09:52)
[2016-07-24] MEDS ORDERED: clonazePAM 0.5 MG TABLET PO PRN (10:00)
[2016-07-24] MEDS ORDERED: HYDROCODONE/APAP 10/325MG 1 EA TABLET PO PRN (10:30)
[2016-07-24] MEDS: ACETYLCYSTEINE 20% SOLN 800 MG/4 ML VIAL NEB SCH ×3 (11:41→23:56)
[2016-07-24] MEDS: ALBUTEROL HALF STRENGTH 1.25 MG/3 ML VIAL.NEB NEB SCH ×4 (11:41→23:56)
[2016-07-24] MEDS: IPRATROPIUM NEB FS 0.5 MG/2.5 ML AMPUL.NEB NEB SCH ×4 (11:41→23:56)
[2016-07-24 12:00] VITALS: BP 137/67
[2016-07-24] MEDS: PIPERACILLIN /TAZOBACTAM 3.375 G in IV D5W 50 ML IV SCH ×2 (12:27→17:53)
[2016-07-24] MEDS ORDERED: FEE PK DOSING 1 MIN EA MC ONE (13:37)
[2016-07-24 16:00] VITALS: BP 123/60
[2016-07-24] MEDS: BOOST PLUS FOOD-VANILLA 237 ML BOX PO SCH (16:01)
[2016-07-24] MEDS: VANCOMYCIN 0.75 GM in IV D5W 250 ML IV SCH (17:54)
[2016-07-24] MEDS ORDERED: DIVALPROEX SODIUM 125 MG PO SCH (18:00)
[2016-07-24 20:00] VITALS: BP 139/78
[2016-07-24] MEDS: ENOXAPARIN SODIUM 40 MG/0.4 ML DISP.SYRIN SQ SCH (21:55)
[2016-07-24] MEDS: TAMSULOSIN 0.4 MG CAP.SR.24H PO SCH (21:55)
[2016-07-24] MEDS ORDERED: Medication Not On Formulary EA (Melatonin 3 MG) PO SCH (22:00)
[2016-07-25] VITALS: BP 132/60
[2016-07-25] MEDS: PIPERACILLIN /TAZOBACTAM 3.375 G in IV D5W 50 ML IV SCH ×5 (00:44→23:29)
[2016-07-25] MEDS: ALBUTEROL HALF STRENGTH 1.25 MG/3 ML VIAL.NEB NEB SCH ×6 (03:49→23:14)
[2016-07-25] MEDS: IPRATROPIUM NEB FS 0.5 MG/2.5 ML AMPUL.NEB NEB SCH ×6 (03:50→23:14)
[2016-07-25 04:00] VITALS: BP 159/80
[2016-07-25 06:48] LABS: HEMATOCRIT 29 % (39-51); HEMOGLOBIN 9.2 g/dL (13.5-17.5); LYMPHOCYTES # (AUTO) 0.6 /CMM (0.8-4.8); LYMPHOCYTES % (AUTO) 2.2 % (20.0-44.0); MEAN CORPUSCULAR HEMOGLOBIN 28 PG (26.0-33.0); MEAN CORPUSCULAR HGB CONC 32 g/dl (31.0-36.0); MEAN CORPUSCULAR VOLUME 86 fL (80-96); MONOCYTES # (AUTO) 1.5 /CMM (0.1-1.30); MONOCYTES % (AUTO) 5.7 % (2.0-12.0); NEUTROPHILS # (AUTO) 24.5 /CMM (1.8-8.9); NEUTROPHILS % (AUTO) 92.1 % (43.0-81.0); PLATELET COUNT (AUTO) 446 /CMM (150-450); RDW COEFFICIENT OF VARIATION 17.1 (11.5-15.0); RED BLOOD CELL COUNT(AUTO) 3.29 MIL/uL (4.5-6.0); WHITE BLOOD COUNT (AUTO) 26.6 K/uL (4.3-11.0)
[2016-07-25 07:12] LABS: ALBUMIN 1.5 g/dL (3.4-5.0); BILIRUBIN,TOTAL 0.5 mg/dL (0.2-1.0); CALCIUM, SERUM 10.1 mg/dL (8.5-10.1); PHOSPHORUS 2.4 mg/dL (2.5-4.9); TOTAL PROTEIN, SERUM 6.7 g/dL (6.4-8.2)
[2016-07-25] MEDS: ACETYLCYSTEINE 20% SOLN 800 MG/4 ML VIAL NEB SCH ×3 (07:26→23:14)
[2016-07-25] MEDS: BOOST PLUS FOOD-VANILLA 237 ML BOX PO SCH ×2 (07:57→16:13)
[2016-07-25 08:00] VITALS: BP 147/89
[2016-07-25] MEDS: QUETIAPINE FUMARATE 25 MG TABLET PO SCH ×3 (08:11→16:13)
[2016-07-25] MEDS: CLOPIDOGREL BISULFATE 75 MG TABLET PO SCH (08:11)
[2016-07-25] MEDS: AMLODIPINE BESYLATE 2.5 MG TABLET PO SCH (08:11)
[2016-07-25] MEDS: CARBIDOPA/LEVODOPA 25/100 MG 1 UDTAB PO SCH ×4 (08:11→21:00)
[2016-07-25] MEDS: DIVALPROEX SODIUM 250 MG TABLET.DR PO SCH ×2 (08:11→16:13)
[2016-07-25] MEDS: PANTOPRAZOLE 40 MG VIAL IV SCH (08:33)
[2016-07-25 08:57] LABS: BAND % (MANUAL) 35 % (0.0-5.0); LYMPHOCYTES % (MANUAL) 2 % (16-48); MONOCYTES % (MANUAL) 5 % (0-11.0); NEUTROPHILS % (MANUAL) 58 (42-76)
[2016-07-25] MEDS ORDERED: SECONDARY IV SET 1 EA INFUS.SET MC ONE (11:00)
[2016-07-25] MEDS ORDERED: IV D5/0.45 NACL 1,000 ML IV PRN (11:07)
[2016-07-25] MEDS ORDERED: IV SET PRIMARY PUMP SET 1 EA INFUS.SET MC ONE ×2 (11:22→14:09)
[2016-07-25] MEDS: POTASSIUM CL. PREMIX PERIPHER. 50 ML IV SCH ×6 (11:30→16:46)
[2016-07-25 12:00] VITALS: BP 137/76
[2016-07-25] MEDS: VANCOMYCIN 0.75 GM in IV D5W 250 ML IV SCH (12:12)
[2016-07-25] MEDS ORDERED: POTASSIUM PHOSPHATE MM 7.5 MMOL in IV D5W 100 ML IV SCH (14:00)
[2016-07-25 16:00] VITALS: BP 91/62
[2016-07-25] MEDS: LACTOBACILLUS RHAMNOSUS GG 1 EACH CAP.SPRINK PO SCH (16:13)
[2016-07-25 20:00] VITALS: BP 150/80
[2016-07-25] MEDS: TAMSULOSIN 0.4 MG CAP.SR.24H PO SCH (21:41)
[2016-07-25] MEDS: ENOXAPARIN SODIUM 40 MG/0.4 ML DISP.SYRIN SQ SCH (21:58)
[2016-07-26] VITALS: BP 154/88
[2016-07-26] MEDS: VANCOMYCIN 0.75 GM in IV D5W 250 ML IV SCH ×2 (00:01→12:28)
[2016-07-26] MEDS: IPRATROPIUM NEB FS 0.5 MG/2.5 ML AMPUL.NEB NEB SCH ×6 (03:28→23:32)
[2016-07-26] MEDS: ALBUTEROL HALF STRENGTH 1.25 MG/3 ML VIAL.NEB NEB SCH ×6 (03:28→23:32)
[2016-07-26 04:00] VITALS: BP 142/88
[2016-07-26] MEDS: PIPERACILLIN /TAZOBACTAM 3.375 G in IV D5W 50 ML IV SCH ×3 (05:24→18:21)
[2016-07-26 06:24] LABS: EOSINOPHILS # (AUTO) 0.1 /CMM (0.0-0.7); EOSINOPHILS % (AUTO) 0.5 % (0.0-6.0); HEMATOCRIT 27 % (39-51); HEMOGLOBIN 8.7 g/dL (13.5-17.5); LYMPHOCYTES # (AUTO) 0.8 /CMM (0.8-4.8); LYMPHOCYTES % (AUTO) 3.2 % (20.0-44.0); MEAN CORPUSCULAR HEMOGLOBIN 28 PG (26.0-33.0); MEAN CORPUSCULAR HGB CONC 33 g/dl (31.0-36.0); MEAN CORPUSCULAR VOLUME 85 fL (80-96); MONOCYTES # (AUTO) 1.1 /CMM (0.1-1.30); MONOCYTES % (AUTO) 4.2 % (2.0-12.0); NEUTROPHILS # (AUTO) 23.4 /CMM (1.8-8.9); NEUTROPHILS % (AUTO) 92.1 % (43.0-81.0); PLATELET COUNT (AUTO) 437 /CMM (150-450); RDW COEFFICIENT OF VARIATION 16.8 (11.5-15.0); RED BLOOD CELL COUNT(AUTO) 3.13 MIL/uL (4.5-6.0); WHITE BLOOD COUNT (AUTO) 25.5 K/uL (4.3-11.0)
[2016-07-26 06:41] LABS: CALCIUM, SERUM 9.4 mg/dL (8.5-10.1); CREATININE 0.9 mg/dL (0.6-1.3); PHOSPHORUS 2.4 mg/dL (2.5-4.9)
[2016-07-26] MEDS: ACETYLCYSTEINE 20% SOLN 800 MG/4 ML VIAL NEB SCH ×3 (07:08→23:32)
[2016-07-26 08:00] VITALS: BP 145/91
[2016-07-26] MEDS: BOOST PLUS FOOD-VANILLA 237 ML BOX PO SCH ×2 (08:00→17:00)
[2016-07-26] MEDS: CLOPIDOGREL BISULFATE 75 MG TABLET PO SCH (09:00)
[2016-07-26] MEDS: CARBIDOPA/LEVODOPA 25/100 MG 1 UDTAB PO SCH ×4 (09:00→20:00)
[2016-07-26] MEDS: LACTOBACILLUS RHAMNOSUS GG 1 EACH CAP.SPRINK PO SCH ×2 (09:00→17:00)
[2016-07-26] MEDS: QUETIAPINE FUMARATE 25 MG TABLET PO SCH ×3 (09:00→17:00)
[2016-07-26] MEDS: DIVALPROEX SODIUM 250 MG TABLET.DR PO SCH ×2 (09:00→17:00)
[2016-07-26] MEDS: AMLODIPINE BESYLATE 2.5 MG TABLET PO SCH (09:00)
[2016-07-26] MEDS: PANTOPRAZOLE 40 MG VIAL IV SCH (09:18)
[2016-07-26] MEDS: POTASSIUM CL. PREMIX PERIPHER. 50 ML IV SCH ×6 (09:18→18:03)
[2016-07-26 09:23] LABS: BAND % (MANUAL) 3 % (0.0-5.0); EOSINOPHILS % (MANUAL) 1 % (0-4); LYMPHOCYTES % (MANUAL) 2 % (16-48); MONOCYTES % (MANUAL) 5 % (0-11.0); NEUTROPHILS % (MANUAL) 89 (42-76)
[2016-07-26 16:00] VITALS: BP 131/86
[2016-07-26] MEDS: Potassium Chloride 40 MEQ in IV D5W 1,000 ML IV PRN (18:21)
[2016-07-26 20:00] VITALS: BP 149/85
[2016-07-26] MEDS: ENOXAPARIN SODIUM 40 MG/0.4 ML DISP.SYRIN SQ SCH (20:47)
[2016-07-26] MEDS: TAMSULOSIN 0.4 MG CAP.SR.24H PO SCH (22:00)
[2016-07-27] MEDS ORDERED: SECONDARY IV SET 1 EA INFUS.SET MC ONE (00:20)
[2016-07-27] MEDS: PIPERACILLIN /TAZOBACTAM 3.375 G in IV D5W 50 ML IV SCH ×5 (00:27→23:49)
[2016-07-27] MEDS: VANCOMYCIN 0.75 GM in IV D5W 250 ML IV SCH ×3 (00:27→23:49)
[2016-07-27] MEDS: ALBUTEROL HALF STRENGTH 1.25 MG/3 ML VIAL.NEB NEB SCH ×6 (03:30→23:01)
[2016-07-27] MEDS: IPRATROPIUM NEB FS 0.5 MG/2.5 ML AMPUL.NEB NEB SCH ×6 (03:30→23:01)
[2016-07-27 04:00] VITALS: BP 131/77
[2016-07-27] MEDS ORDERED: MORPHINE SULFATE INJ 2 MG/ML DISP.SYRIN ONE (05:54)
[2016-07-27] MEDS: MORPHINE SULFATE INJ 2 MG/ML DISP.SYRIN IVP PRN ×2 (06:02→17:11)
[2016-07-27 06:42] LABS: EOSINOPHILS # (AUTO) 0.3 /CMM (0.0-0.7); EOSINOPHILS % (AUTO) 1.7 % (0.0-6.0); HEMATOCRIT 25 % (39-51); HEMOGLOBIN 8.1 g/dL (13.5-17.5); LYMPHOCYTES % (AUTO) 5.7 % (20.0-44.0); MEAN CORPUSCULAR HEMOGLOBIN 27 PG (26.0-33.0); MEAN CORPUSCULAR HGB CONC 33 g/dl (31.0-36.0); MEAN CORPUSCULAR VOLUME 84 fL (80-96); MONOCYTES # (AUTO) 1.1 /CMM (0.1-1.30); NEUTROPHILS # (AUTO) 15.4 /CMM (1.8-8.9); NEUTROPHILS % (AUTO) 86.6 % (43.0-81.0); PLATELET COUNT (AUTO) 412 /CMM (150-450); RDW COEFFICIENT OF VARIATION 16.6 (11.5-15.0); RED BLOOD CELL COUNT(AUTO) 2.96 MIL/uL (4.5-6.0); WHITE BLOOD COUNT (AUTO) 17.8 K/uL (4.3-11.0)
[2016-07-27 06:51] LABS: CALCIUM, SERUM 9.1 mg/dL (8.5-10.1); CREATININE 0.9 mg/dL (0.6-1.3); POTASSIUM 3.7 mmol/L (3.5-5.1)
[2016-07-27] MEDS: ACETYLCYSTEINE 20% SOLN 800 MG/4 ML VIAL NEB SCH ×3 (07:58→23:01)
[2016-07-27 08:00] VITALS: BP 138/79
[2016-07-27] MEDS: PANTOPRAZOLE 40 MG VIAL IV SCH (08:00)
[2016-07-27] MEDS: BOOST PLUS FOOD-VANILLA 237 ML BOX PO SCH ×2 (08:00→15:56)
[2016-07-27] MEDS: AMLODIPINE BESYLATE 2.5 MG TABLET PO SCH (09:00)
[2016-07-27] MEDS: QUETIAPINE FUMARATE 25 MG TABLET PO SCH ×3 (09:00→15:57)
[2016-07-27] MEDS: CLOPIDOGREL BISULFATE 75 MG TABLET PO SCH (09:00)
[2016-07-27] MEDS: DIVALPROEX SODIUM 250 MG TABLET.DR PO SCH ×2 (09:00→15:56)
[2016-07-27] MEDS: LACTOBACILLUS RHAMNOSUS GG 1 EACH CAP.SPRINK PO SCH ×2 (09:00→15:56)
[2016-07-27] MEDS: CARBIDOPA/LEVODOPA 25/100 MG 1 UDTAB PO SCH ×4 (09:00→21:00)
[2016-07-27] MEDS ORDERED: BARIUM SULFATE 148 GM SUSP.RECON PO ONE (10:45)
[2016-07-27] MEDS ORDERED: BARIUM SULFATE 240 ML ORAL.SUSP PO ONE (10:45)
[2016-07-27 12:00] VITALS: BP 138/79
[2016-07-27 16:00] VITALS: BP 136/80
[2016-07-27 20:00] VITALS: BP 140/81
[2016-07-27] MEDS: TAMSULOSIN 0.4 MG CAP.SR.24H PO SCH (21:08)
[2016-07-27] MEDS: ENOXAPARIN SODIUM 40 MG/0.4 ML DISP.SYRIN SQ SCH (21:39)
[2016-07-28] MEDS ORDERED: SECONDARY IV SET 1 EA INFUS.SET MC ONE (00:11)
[2016-07-28] MEDS: ALBUTEROL HALF STRENGTH 1.25 MG/3 ML VIAL.NEB NEB SCH ×6 (03:06→23:47)
[2016-07-28] MEDS: IPRATROPIUM NEB FS 0.5 MG/2.5 ML AMPUL.NEB NEB SCH ×6 (03:06→23:47)
[2016-07-28 04:00] VITALS: BP 131/70
[2016-07-28] MEDS: PIPERACILLIN /TAZOBACTAM 3.375 G in IV D5W 50 ML IV SCH ×4 (05:19→23:47)
[2016-07-28 06:39] LABS: BASOPHILS % (AUTO) 0.2 % (0.0-2.0); EOSINOPHILS # (AUTO) 0.5 /CMM (0.0-0.7); EOSINOPHILS % (AUTO) 2.7 % (0.0-6.0); HEMATOCRIT 27 % (39-51); HEMOGLOBIN 8.9 g/dL (13.5-17.5); LYMPHOCYTES # (AUTO) 1.1 /CMM (0.8-4.8); LYMPHOCYTES % (AUTO) 5.9 % (20.0-44.0); MEAN CORPUSCULAR HEMOGLOBIN 28 PG (26.0-33.0); MEAN CORPUSCULAR HGB CONC 33 g/dl (31.0-36.0); MEAN CORPUSCULAR VOLUME 85 fL (80-96); MONOCYTES # (AUTO) 1.4 /CMM (0.1-1.30); MONOCYTES % (AUTO) 7.4 % (2.0-12.0); NEUTROPHILS % (AUTO) 83.8 % (43.0-81.0); PLATELET COUNT (AUTO) 416 /CMM (150-450); RDW COEFFICIENT OF VARIATION 17.2 (11.5-15.0); RED BLOOD CELL COUNT(AUTO) 3.23 MIL/uL (4.5-6.0)
[2016-07-28 06:44] LABS: CALCIUM, SERUM 9.1 mg/dL (8.5-10.1); CREATININE 0.9 mg/dL (0.6-1.3); POTASSIUM 3.3 mmol/L (3.5-5.1)
[2016-07-28 08:00] VITALS: BP 123/63
[2016-07-28] MEDS: PANTOPRAZOLE 40 MG VIAL IV SCH (08:00)
[2016-07-28] MEDS: BOOST PLUS FOOD-VANILLA 237 ML BOX PO SCH ×2 (08:00→16:24)
[2016-07-28] MEDS: ACETYLCYSTEINE 20% SOLN 800 MG/4 ML VIAL NEB SCH ×3 (08:10→23:47)
[2016-07-28] MEDS: CLOPIDOGREL BISULFATE 75 MG TABLET PO SCH (09:00)
[2016-07-28] MEDS: DIVALPROEX SODIUM 250 MG TABLET.DR PO SCH ×2 (09:00→16:24)
[2016-07-28] MEDS: CARBIDOPA/LEVODOPA 25/100 MG 1 UDTAB PO SCH ×4 (09:00→21:00)
[2016-07-28] MEDS: QUETIAPINE FUMARATE 25 MG TABLET PO SCH ×3 (09:00→16:24)
[2016-07-28] MEDS: AMLODIPINE BESYLATE 2.5 MG TABLET PO SCH (09:00)
[2016-07-28] MEDS: Potassium Chloride 40 MEQ in IV D5W 1,000 ML IV PRN (09:04)
[2016-07-28] MEDS: MORPHINE SULFATE INJ 2 MG/ML DISP.SYRIN IVP PRN ×3 (09:28→23:57)
[2016-07-28] MEDS ORDERED: POTASSIUM CHLORIDE 20 MEQ TAB.PRT.SR PO ONE (11:00)
[2016-07-28 12:00] VITALS: BP_SYST 125; BP_SYST 131; BP_DIAS 60; BP_DIAS 70
[2016-07-28] MEDS ORDERED: TPN/PPN PER PHARMACY IV PRN (12:00)
[2016-07-28 12:33] LABS: PHOSPHORUS 2.4 mg/dL (2.5-4.9)
[2016-07-28] MEDS ORDERED: TPN BAG #1 IV PRN ×7 (15:00)
[2016-07-28] MEDS ORDERED: Potassium Chloride 40 MEQ in IV D5W 1,000 ML IV PRN (15:00)
[2016-07-28] MEDS ORDERED: DEXTROSE 50%-WATER 50 ML DISP.SYRIN IV PRN (15:00)
[2016-07-28] MEDS ORDERED: FEE TPN 1 MIN EA MC ONE (15:02)
[2016-07-28 16:00] VITALS: BP 113/58
[2016-07-28] MEDS: BLOOD SUGAR DIAGNOSTIC 1 EACH STRIP IN SCH ×2 (18:10→23:56)
[2016-07-28] MEDS: VANCOMYCIN 1 GM in IV D5W 250 ML IV SCH (18:48)
[2016-07-28] MEDS ORDERED: IV SET PRIMARY PUMP SET 1 EA INFUS.SET MC ONE ×2 (19:48→21:09)
[2016-07-28] MEDS ORDERED: FILTER SET SAVER IV SET 1 EA INFUS.SET MC ONE (19:48)
[2016-07-28 20:00] VITALS: BP 97/55
[2016-07-28] MEDS: ENOXAPARIN SODIUM 40 MG/0.4 ML DISP.SYRIN SQ SCH (21:09)
[2016-07-28] MEDS: TAMSULOSIN 0.4 MG CAP.SR.24H PO SCH (21:21)
[2016-07-28] MEDS: INSULIN REGULAR, HUMAN 100 UNIT/ML 3 ML VIAL SQ PRN (23:53)
[2016-07-29] MEDS: ALBUTEROL HALF STRENGTH 1.25 MG/3 ML VIAL.NEB NEB SCH ×6 (03:26→23:43)
[2016-07-29] MEDS: IPRATROPIUM NEB FS 0.5 MG/2.5 ML AMPUL.NEB NEB SCH ×6 (03:26→23:43)
[2016-07-29 04:00] VITALS: BP 123/61
[2016-07-29] MEDS: PIPERACILLIN /TAZOBACTAM 3.375 G in IV D5W 50 ML IV SCH ×4 (05:24→23:53)
[2016-07-29] MEDS: BLOOD SUGAR DIAGNOSTIC 1 EACH STRIP IN SCH ×4 (05:24→23:53)
[2016-07-29] MEDS: MORPHINE SULFATE INJ 2 MG/ML DISP.SYRIN IVP PRN ×3 (05:31→22:40)
[2016-07-29 07:00] LABS: CALCIUM, SERUM 8.8 mg/dL (8.5-10.1); CREATININE 0.8 mg/dL (0.6-1.3); MAGNESIUM 1.9 mg/dL (1.8-2.4); PHOSPHORUS 2.6 mg/dL (2.5-4.9); POTASSIUM 3.6 mmol/L (3.5-5.1)
[2016-07-29] MEDS: ACETYLCYSTEINE 20% SOLN 800 MG/4 ML VIAL NEB SCH ×3 (07:48→23:42)
[2016-07-29 08:00] VITALS: BP 128/63
[2016-07-29] MEDS: BOOST PLUS FOOD-VANILLA 237 ML BOX PO SCH ×2 (08:00→16:49)
[2016-07-29] MEDS: PANTOPRAZOLE 40 MG VIAL IV SCH (08:20)
[2016-07-29] MEDS: FAT EMULSION 20% 500 ML in PREMIX 1 EA IV SCH ×2 (08:21→09:35)
[2016-07-29] MEDS: QUETIAPINE FUMARATE 25 MG TABLET PO SCH ×3 (09:00→16:50)
[2016-07-29] MEDS: CARBIDOPA/LEVODOPA 25/100 MG 1 UDTAB PO SCH ×4 (09:00→20:27)
[2016-07-29] MEDS: CLOPIDOGREL BISULFATE 75 MG TABLET PO SCH (09:00)
[2016-07-29] MEDS: DIVALPROEX SODIUM 250 MG TABLET.DR PO SCH ×2 (09:00→16:50)
[2016-07-29] MEDS: AMLODIPINE BESYLATE 2.5 MG TABLET PO SCH (09:00)
[2016-07-29] MEDS ORDERED: FILTER SET SAVER IV SET 1 EA INFUS.SET MC ONE ×2 (09:22→11:07)
[2016-07-29] MEDS ORDERED: IV SET PRIMARY PUMP SET 1 EA INFUS.SET MC ONE ×3 (09:25→22:26)
[2016-07-29] MEDS ORDERED: Potassium Chloride 40 MEQ in IV D5W 1,000 ML IV PRN (12:27)
[2016-07-29] MEDS ORDERED: TPN BAG #3 IV PRN ×6 (12:30)
[2016-07-29] MEDS ORDERED: TPN BAG #2 IV PRN ×16 (12:30)
[2016-07-29] MEDS: VANCOMYCIN 1 GM in IV D5W 250 ML IV SCH (12:57)
[2016-07-29 16:00] VITALS: BP 123/55
[2016-07-29 16:31] VITALS: BP 128/63
[2016-07-29 20:00] VITALS: BP 145/74
[2016-07-29] MEDS: ENOXAPARIN SODIUM 40 MG/0.4 ML DISP.SYRIN SQ SCH (20:26)
[2016-07-29] MEDS: TAMSULOSIN 0.4 MG CAP.SR.24H PO SCH (22:00)
[2016-07-29] MEDS ORDERED: IV NS 0.9% 250 ML IV ONE (22:26)
[2016-07-30 04:00] VITALS: BP 134/64
[2016-07-30] MEDS: IPRATROPIUM NEB FS 0.5 MG/2.5 ML AMPUL.NEB NEB SCH ×2 (04:10→08:28)
[2016-07-30] MEDS: ALBUTEROL HALF STRENGTH 1.25 MG/3 ML VIAL.NEB NEB SCH ×2 (04:10→08:28)
[2016-07-30] MEDS ORDERED: SECONDARY IV SET 1 EA INFUS.SET MC ONE (04:30)
[2016-07-30] MEDS: PIPERACILLIN /TAZOBACTAM 3.375 G in IV D5W 50 ML IV SCH (05:24)
[2016-07-30] MEDS: BLOOD SUGAR DIAGNOSTIC 1 EACH STRIP IN SCH (05:24)
[2016-07-30] MEDS: INSULIN REGULAR, HUMAN 100 UNIT/ML 3 ML VIAL SQ PRN (05:27)
[2016-07-30] MEDS: VANCOMYCIN 1 GM in IV D5W 250 ML IV SCH (06:30)
[2016-07-30] MEDS: MORPHINE SULFATE INJ 2 MG/ML DISP.SYRIN IVP PRN (06:50)
[2016-07-30 07:13] LABS: BASOPHILS % (AUTO) 0.1 % (0.0-2.0); EOSINOPHILS # (AUTO) 0.5 /CMM (0.0-0.7); EOSINOPHILS % (AUTO) 3.3 % (0.0-6.0); HEMATOCRIT 25 % (39-51); HEMOGLOBIN 8.2 g/dL (13.5-17.5); LYMPHOCYTES # (AUTO) 1.4 /CMM (0.8-4.8); LYMPHOCYTES % (AUTO) 8.1 % (20.0-44.0); MEAN CORPUSCULAR HEMOGLOBIN 28 PG (26.0-33.0); MEAN CORPUSCULAR HGB CONC 33 g/dl (31.0-36.0); MEAN CORPUSCULAR VOLUME 83 fL (80-96); MONOCYTES # (AUTO) 1.2 /CMM (0.1-1.30); MONOCYTES % (AUTO) 7.2 % (2.0-12.0); NEUTROPHILS # (AUTO) 13.6 /CMM (1.8-8.9); NEUTROPHILS % (AUTO) 81.3 % (43.0-81.0); PLATELET COUNT (AUTO) 405 /CMM (150-450); RDW COEFFICIENT OF VARIATION 16.9 (11.5-15.0); RED BLOOD CELL COUNT(AUTO) 2.96 MIL/uL (4.5-6.0); WHITE BLOOD COUNT (AUTO) 16.7 K/uL (4.3-11.0)
[2016-07-30 07:25] LABS: CALCIUM, SERUM 8.4 mg/dL (8.5-10.1); CREATININE 0.8 mg/dL (0.6-1.3); MAGNESIUM 1.9 mg/dL (1.8-2.4); PHOSPHORUS 2.6 mg/dL (2.5-4.9); POTASSIUM 3.3 mmol/L (3.5-5.1)
[2016-07-30 08:00] VITALS: BP 120/50
[2016-07-30] MEDS: BOOST PLUS FOOD-VANILLA 237 ML BOX PO SCH (08:00)
[2016-07-30] MEDS: ACETYLCYSTEINE 20% SOLN 800 MG/4 ML VIAL NEB SCH (08:28)
[2016-07-30] MEDS ORDERED: TPN BAG #3 IV PRN ×12 (08:32→08:35)
[2016-07-30] MEDS: AMLODIPINE BESYLATE 2.5 MG TABLET PO SCH (09:00)
[2016-07-30] MEDS ORDERED: TPN BAG #5 IV PRN ×6 (09:00)
[2016-07-30] MEDS: QUETIAPINE FUMARATE 25 MG TABLET PO SCH (09:00)
[2016-07-30] MEDS ORDERED: TPN BAG #4 IV PRN ×8 (09:00)
[2016-07-30] MEDS: DIVALPROEX SODIUM 250 MG TABLET.DR PO SCH (09:00)
[2016-07-30] MEDS: CLOPIDOGREL BISULFATE 75 MG TABLET PO SCH (09:00)
[2016-07-30] MEDS: CARBIDOPA/LEVODOPA 25/100 MG 1 UDTAB PO SCH (09:00)
[2016-07-30] MEDS ORDERED: POTASSIUM CL. PREMIX PERIPHER. 50 ML IV SCH (09:00)
[2016-07-30] MEDS: PANTOPRAZOLE 40 MG VIAL IV SCH (09:18)
[2016-07-30 09:29] LABS: EOSINOPHILS % (MANUAL) 3 % (0-4); LYMPHOCYTES % (MANUAL) 10 % (16-48); MONOCYTES % (MANUAL) 5 % (0-11.0); NEUTROPHILS % (MANUAL) 82 (42-76)
== END 2016-07-30 09:27 | disposition hospice, inpatient (51) | DRG 871 ==
LOC: ER 22:08 → TELE-TD 23:07 → TELE1 07-25 10:06 → MEDSG1 07-26 09:04
PROVIDERS: ADMIT Internal Medicine; ATTEND Internal Medicine
PROC: 5A09357 Assistance with Respiratory Ventilation, Less than 24 Consecutive Hours, Continuous Positive Airway Pressure (ICD-10-PCS; principal; 2016-07-23)
PROC: 05H633Z Insertion of Infusion Device into Left Subclavian Vein, Percutaneous Approach (ICD-10-PCS; 2016-07-28)
DX: A41.9 Sepsis, unspecified organism (principal); J96.01 Acute respiratory failure with hypoxia; E43 Unspecified severe protein-calorie malnutrition; I21.4 Non-ST elevation (NSTEMI) myocardial infarction; G93.41 Metabolic encephalopathy; J15.9 Unspecified bacterial pneumonia; J15.6 Pneumonia due to other Gram-negative bacteria; J44.0 Chronic obstructive pulmonary disease with (acute) lower respiratory infection; E87.0 Hyperosmolality and hypernatremia; Z68.1 Body mass index [BMI] 19.9 or less, adult; J98.11 Atelectasis; T17.890A Other foreign object in other parts of respiratory tract causing asphyxiation, initial encounter; E78.5 Hyperlipidemia, unspecified; E87.6 Hypokalemia; F03.90 Unspecified dementia, unspecified severity, without behavioral disturbance, psychotic disturbance, mood disturbance, and anxiety; D63.8 Anemia in other chronic diseases classified elsewhere; E86.1 Hypovolemia; F32.9 Major depressive disorder, single episode, unspecified; G20 Parkinson's disease; I25.10 Atherosclerotic heart disease of native coronary artery without angina pectoris; K21.9 Gastro-esophageal reflux disease without esophagitis; Z66 Do not resuscitate; Z86.73 Personal history of transient ischemic attack (TIA), and cerebral infarction without residual deficits; Z87.442 Personal history of urinary calculi; F09 Unspecified mental disorder due to known physiological condition; N40.0 Benign prostatic hyperplasia without lower urinary tract symptoms; Z98.890 Other specified postprocedural states; L98.8 Other specified disorders of the skin and subcutaneous tissue; S50.11XA Contusion of right forearm, initial encounter; X58.XXXA Exposure to other specified factors, initial encounter; Y93.9 Activity, unspecified; Y92.129 Unspecified place in nursing home as the place of occurrence of the external cause; Y99.9 Unspecified external cause status; L89.621 Pressure ulcer of left heel, stage 1; L89.611 Pressure ulcer of right heel, stage 1; L85.9 Epidermal thickening, unspecified; E88.09 Other disorders of plasma-protein metabolism, not elsewhere classified; R65.20 Severe sepsis without septic shock; Z79.899 Other long term (current) drug therapy; I10 Essential (primary) hypertension
CPT/HCPCS: 31720; 36415; 36600; 71010-TC; 74230-TC; 80048-TC; 80053-TC; 80061-TC; 80076-TC; 80202-TC; 82803-TC; 82962-TC; 83605-TC; 83735-TC; 84100-TC; 84484-TC; 85025-TC; 85730-TC; 87040-TC; 87081-TC; 92526; 92611-TC; 94760-TC; 94762-TC; 94799-TC; 97001-TC; 97530-TC; A4216; A4606; C9113; J1650; J1815; J1956; J2270; J2543; J3370; J3475; J3480; J3490; J7030; J7040; J7050; J7060; J7070; Q9967; Z7610

== ENCOUNTER 2016-07-30 09:50 | Inpatient (IN) | payer OTHER ==
[~2016-07-30] VITALS: Ht 177.8 cm; Wt 52.6 kg
[~2016-07-30 09:50] MED LIST changes: +HYDR-548 PO; +LACT-15 PO
[2016-07-30 12:20] VITALS: BP 120/50
--- NOTE | 2016-07-30 12:35 | NUR ---
BAKERY DECORATOR NOTE ADMITTED PATIENT UNDER CARE DR ZAPATA UNDER [facility] CARE , AWAKE BUT UNABLE TO FOLLOW ANY COMMAND , ON 4 L NC NO SOB NOTED, KEEP CLEAN DRY , AWAITING FOR HOSPICE NURSE TO DO EVAL , ON [employer] CIARA HARDING MID LINE IN PLACE, WITH TKO AT THIS TIME, BED IN LOWEST AND LOCKED POSITION RT KNEE IMMOBILIZER IN PLACE AND ABDUCTION PILLOW IN PLACE WILL CONT TO MONITOR CLOSELY
--- NOTE | 2016-07-30 15:09 | NUR ---
HOSPICE TH NOTE RIC STONE CUTTER NURSE AT BED SIDE SPOKE WITH OK TO CONT MORPHINE 1 MG Q4 HOUR IV OK TO CONT TO CHECK VITAL AND OK TO HAVE O2 VIA NC WILL F\U ,
[2016-07-30] MEDS: MORPHINE SULFATE INJ 2 MG/ML DISP.SYRIN IV PRN ×2 (15:47→22:51)
--- NOTE | 2016-07-30 15:54 | NUR ---
LURE MAKER NOTE BECOME RESTLESS MORPHINE 1 MG IVP GIVEN ORDERED , WILL CONT TO MONITOR CLOSELY ,O2 SAT 96% KEEP CLEAN DRY REPOSITION ALL NEEDS ATTENDED , NO SOB NOTED, WILL CONT TO MONITOR CLOSELY
[2016-07-30 16:00] VITALS: BP 139/59
--- NOTE | 2016-07-30 18:10 | NUR ---
NON DESTRUCTIVE TESTING TECHNICIAN NOTE RESTING COMFORTABLY AT THIS TIME ,NOT IN ACUTE DISTRESS, WILL CONT TO MONITOR CLOSELY
--- NOTE | 2016-07-30 19:05 | NUR ---
RN NOTES RECEIVED PT ASLEEP, HOB ELEVATED, BREATHING REGULAR AND UNLABORED, NO SOB, NOT IN DISTRESS. ON O2 INHALATION VIA NC AT 2LPM WITH GOOD SATURATION. IV ACCESS ON RIGHT HAND AND LEFT UPPER ARM MIDLINE INTACT. RIGHT KNEE IMMOBILIZER AND HIP ABDUCTOR IN PLACE. PT ON HOSPICE CARE, WILL KEEP COMFORTABLE AND ATTENDED. WILL CONTINUE TO MONITOR PT.
[2016-07-30 22:00] VITALS: BP 110/54
--- NOTE | 2016-07-30 22:51 | NUR ---
RN NOTES PT IS IS RESTLESS AND YELLING, MORPHINE 1 MG GIVEN IV. KEPT COMFORTABLE AND ATTENDED. WILL CONTINUE TO MONITOR PT.
[2016-07-31] MEDS: MORPHINE SULFATE INJ 2 MG/ML DISP.SYRIN IV PRN ×2 (02:53→21:22)
--- NOTE | 2016-07-31 02:53 | NUR ---
RN NOTES PT IS YELLING AT THIS TIME, MORPHINE 1 MG GIVEN IV. WILL CONTINUE TO MONITOR PT.
--- NOTE | 2016-07-31 07:26 | NUR ---
RN NOTES PT ASLEEP, BREATHING REGULAR AND UNLABORED, NOT IN DISTRESS. ON 4LPM O2 VIA NC AND TOLERATED WELL. KEPT PAIN AT TOLERABLE LEVEL. COMFORT MEASURES RENDERED. KEPT COMFORTABLE AND ATTENDED. ENDORSED TO MORNING RN FOR CONTINUITY OF CARE.
[2016-07-31 08:00] VITALS: BP 120/66
[2016-07-31 16:00] VITALS: BP 108/49
--- NOTE | 2016-07-31 19:23 | NUR ---
PT IN STABLE CONDITION.NO C/O PAIN,NO SOB NOTED.ALL M.D ORDERS NOTED.SAFETY MEASURES IN PLACE.BED IN LOW AND LOCKED POSITION.
--- NOTE | 2016-07-31 19:30 | NUR ---
HOSPICE1 RN INITIAL NOTE RECEIVED PT SLEEPING BUT EASILY AROUSED, PT IS STABLE AND COMFORTABLE, NO SIGNS OF PAIN OR RESPIRATORY DISTRESS NOTED DURING PHYSICAL ASSESSMENT, WILL MONITOR CLOSELY, ANTICIPATE AND ATTEND TO NEEDS PROMPTLY, SAFETY MEASURES WILL BE MAINTAINED AT ALL TIMES.
[2016-07-31 20:00] VITALS: BP 125/61
--- NOTE | 2016-07-31 21:22 | NUR ---
WHILE RETRIEVING MORPHINE FOR PT ACCIDENTALLY DOCUMENTED IN [facility] THAT 1.5MG WERE WAISTED, CORRECT AMOUNT WAITED WAS 1MG AND 1MG WAS GIVEN TO PT, CHARGE NURSE NOTIFIES, SHE INDICATED THAT A NOTE INDICATING ERROR WOULD SUFFICE.
[2016-08-01] MEDS: MORPHINE SULFATE INJ 2 MG/ML DISP.SYRIN IV PRN ×5 (02:38→21:44)
[2016-08-01 04:00] VITALS: BP 116/59
--- NOTE | 2016-08-01 06:40 | NUR ---
[email or web address] RN CLOSING NOTE PT REMAINED STABLE DURING [employer], RESPIRATIONS CONTINUE TO BE UNLABORED, PAIN HAS BEEN SUCCESSFULLY CONTROLLED WITH CURRENT PAIN MEDICATION ORDERED, ALL NEEDS HAVE BEEN MET, PT HAS BEEN KEPT CLEAN/DRY AND COMFORTABLE, WILL ENDORSE TO INCOMING NURSE FOR MARVA.
--- NOTE | 2016-08-01 07:41 | NUR ---
RN NOTES: PT RECEIVED IN STABLE WITH NO ACUTE DISTRESS NOTED. ON NC OXYGEN 2LPM. IV SITE INTACT, SALINE LOCK. SAFETY MEASURES OBSERVED. ALL NEEDS ATTENDED. ALL PRESSURE POINTS CHECKED & PADDED. ABDUCTION PILLOW IN BETWEEN LEGS FOR POSITIONING. WILL CONTINUE TO MONITOR WITH HOSPICE CARE.
[2016-08-01 08:05] VITALS: BP 115/47
[2016-08-01 16:00] VITALS: BP 146/74
--- NOTE | 2016-08-01 19:23 | NUR ---
RN NOTES: PT REMAINS SAME DURING SHIFT. ADMINISTERED PRN Q4H MORPHINE IV FOR PAIN & DISCOMFORT. FAMILY AT BEDSIDE & TRANSACTIONAL PARALEGAL RIC VISITED PATIENT. REPORT GIVEN TO NIGHT RN FOR CONTINUITY OF CARE.
--- NOTE | 2016-08-01 19:55 | NUR ---
MS RN NOTE: PATIENT RESTING IN BED, NO ACUTE DISTRESS NOTED, FAMILY AT BEDSIDE. BREATHING EVEN AND UNLABORED, NO SOB NOTED. MIDLINE TO MEAGHAN IN PLACE. IV TO RIGHT HAND IN PLACE. BED LOCKED AND IN LOWEST POSITION, CALL LIGHT IN REACH. WILL CONTINUE TO MONITOR.
[2016-08-01 20:00] VITALS: BP 132/56
--- NOTE | 2016-08-01 21:45 | NUR ---
RN NOTE: PATIENT WITH FACIAL GRIMACE AND MOANING. MORPHINE 1MG IV GIVEN PER MD ORDER. WILL CONTINUE TO MONITOR.
--- NOTE | 2016-08-02 02:45 | NUR ---
RN NOTE: PATIENT WITH FACIAL GRIMACE AND MOANING. MORPHINE 1MG IV GIVEN PER MD ORDER, SIGNED ON PAPER MAY. WILL CONTINUE TO MONITOR.
[2016-08-02 04:00] VITALS: BP 145/81
--- NOTE | 2016-08-02 05:30 | NUR ---
RN NOTE: NOTED NEW WOUND TO PATIENT RIGHT POSTERIOR LEG, NO DRAINAGE/BLEEDING NOTED. PHOTO TAKEN AND FILED IN CHART. WILL CONTINUE TO MONITOR.
--- NOTE | 2016-08-02 06:20 | NUR ---
MS RN NOTE: PATIENT RESTING IN BED, NO ACUTE DISTRESS NOTED. BREATHING EVEN AND UNLABORED, NO SOB NOTED. MIDLINE TO MEAGHAN IN PLACE. IV TO RIGHT HAND IN PLACE. BED LOCKED AND IN LOWEST POSITION, CALL LIGHT IN REACH. WILL ENDORSE TO DAY NURSE TO CONTINUE WITH PLAN OF CARE.
--- NOTE | 2016-08-02 07:15 | NUR ---
RN INITIAL NOTE PT RECEIVED IN BED. SON AT BEDSIDE. PT OPENS EYES, NONVERBAL. NO S/S OF PAIN OR DISCOMFORT. AT THIS TIME. ON 4L N/C. RESPIRATIONS ARE SHALLOW, EVEN UNLABORED. NO S/S OF RESPIRATORY DISTRESS OR SOB. IV SITES FLUSHED AND PATENT. SKIN IS WARM AND DRY TO TOUCH. SAFETY PRECAUTIONS IN PLACE, BED IN LOCKED LOW POSITION. CALL LIGHT AND BELONGINGS WITHIN EASY REACH. WILL CONTINUE TO MONITOR.
[2016-08-02] MEDS: MORPHINE SULFATE INJ 2 MG/ML DISP.SYRIN IV PRN ×4 (07:36→21:20)
[2016-08-02 08:00] VITALS: BP 141/77
[2016-08-02 16:00] VITALS: BP 154/88
[2016-08-02] MEDS ORDERED: LORAZEPAM INJ 2 MG/ML VIAL IV PRN (19:00)
--- NOTE | 2016-08-02 19:11 | NUR ---
RN CLOSING NOTE ALL MD ORDERS CARRIED OUT, PATIENT KEPT CLEAN AND DRY. SAFETY PRECAUTIONS IN PLACE AT ALL TIMES. REPORT WILL BE GIVEN TO ONCOMING PM RN FOR MARVA
--- NOTE | 2016-08-02 19:30 | NUR ---
PREPRESS PROOFER INITIAL NOTE RECEIVED REPORT FROM VAIBHAV BABCOCK. FAMILY AT BEDSIDE. ORDERS INCREASED FOR COMFORT. PT IS IN BED, LETHARGIC. ON CONTINOUS OXYGEN. WILL CONTINUE TO MONITOR.
[2016-08-02 20:00] VITALS: BP 142/77
[2016-08-02] MEDS: LORAZEPAM INJ 2 MG/ML VIAL IV PRN (21:07)
--- NOTE | 2016-08-02 21:10 | NUR ---
CIGAR PACKING EXAMINER PT IS YRN ATFRANCA ADMINISTERED FOR COMFORT.
[2016-08-03] MEDS: MORPHINE SULFATE INJ 2 MG/ML DISP.SYRIN IV PRN ×5 (01:22→21:41)
[2016-08-03] MEDS: LORAZEPAM INJ 2 MG/ML VIAL IV PRN ×2 (03:25→11:57)
--- NOTE | 2016-08-03 07:19 | NUR ---
RN INITIAL NOTE PT RECEIVED IN BED.PT OPENS EYES, NONVERBAL. NO S/S OF PAIN OR DISCOMFORT. AT THIS TIME. ON 4L N/C. RESPIRATIONS ARE SHALLOW, EVEN UNLABORED. NO S/S OF RESPIRATORY DISTRESS OR SOB. IV SITES FLUSHED AND PATENT. SKIN IS WARM AND DRY TO TOUCH. SAFETY PRECAUTIONS IN PLACE, BED IN LOCKED LOW POSITION. CALL LIGHT AND BELONGINGS WITHIN EASY REACH. WILL CONTINUE TO MONITOR.
[2016-08-03 08:00] VITALS: BP 110/62
[2016-08-03] MEDS ORDERED: NALOXONE HCL 0.4 MG/ML AMPUL IV PRN (14:30)
[2016-08-03] MEDS ORDERED: MORPHINE SULFATE INJ 2 MG/ML DISP.SYRIN IV PRN (14:30)
[2016-08-03] MEDS: SCOPOLAMINE HBR 1 EA PATCH.TD72 TD SCH (15:13)
--- NOTE | 2016-08-03 19:30 | NUR ---
SIDE GLUER INITIAL NOTES SON AT BEDSIDE. PT RECEIVED IN BED PT OPENS EYES, ON 4L NC O2 SAT 94% NONVERBAL. NO S/S OF RESPIRATORY DISTRESS OR SOB.NO S/S OF PAIN OR DISCOMFORT AT THIS TIME. RESPIRATIONS SHALLOW, EVEN UNLABORED. IV SITE INTACT. SKIN IS WARM AND DRY TO TOUCH. SAFETY PRECAUTIONS IN PLACE, BED IN LOCKED LOW POSITION. CALL LIGHT AND BELONGINGS WITHIN EASY REACH. WILL CONTINUE TO MONITOR.
[2016-08-03 20:00] VITALS: BP 122/49
[2016-08-03 20:08] VITALS: BP 122/49
[2016-08-04 04:00] VITALS: BP 138/76
[2016-08-04] MEDS: MORPHINE SULFATE INJ 2 MG/ML DISP.SYRIN IV PRN ×5 (04:28→16:47)
--- NOTE | 2016-08-04 06:54 | NUR ---
CONTROL SYSTEMS DRAFTING OFFICER CLOSING NOTES PATIENT ASLEEP AND EASILY AROUSED, NO S/S OF DISTRESS NOTED. NO SIGNS OF PAIN OR RESPIRATORY DISTRESS NOTED ,ANTICIPATED AND ATTENDED TO NEEDS PROMPTLY, SAFETY MEASURES MAINTAINED AT ALL TIMES. PATIENT ROUNDING Q2H. ON 4LPM VIA NC 02 SAT 95%. COMFORT MEASURES PROVIDED. KEPT CLEAN AND DRY AND COMFORTABLE, NURSING CARE RENDERED. CALL LIGHT WITHIN EASY TO REACH. ON LOW BED TO ENSURE SAFETY. WILL ENDORSE TO THE NEXT SHIFT CONTINUITY OF CARE. BED BATH WAS DONE Addendum: 08/04/16 at 0655 by MARIE GODWIN RN ADDENDUM: REPOSITIONED Q2H, OFFLOAD AT ALL TIMES
--- NOTE | 2016-08-04 07:10 | NUR ---
RN NOTES RECEIVED PT ON BED, EYES OPEN , NONVERBAL , ON O2 AT 4L NO SOB NOTED ,RESPIRATION EVEN AND UNLABORED IN BED ,L UPPER ARM MIDLINE SITE CDI, SKIN IS WARM AND DRY TO TOUCH.SR UP x3, SAFETY PRECAUTIONS IN PLACE, BED IN LOCKED AND LOWEST POSITION. CALL LIGHT WITHIN EASY REACH , WILL CONTINUE TO MONITOR PT CLOSELY AND NOTIFY MD FOR ANY SIGNIFICANT CHANGES .
[2016-08-04 08:00] VITALS: BP 134/74
--- NOTE | 2016-08-04 12:00 | NUR ---
RN NOTES SUPPORTIVE FAMILY AT THE BEDSIDE . VSS STABLE, PT NPO, CONTINUE COMFORT CARE .
[2016-08-04 16:00] VITALS: BP 121/59
--- NOTE | 2016-08-04 18:00 | NUR ---
RN NOTES RESPIRATION SHALLOW AND SLOW , BP STABLE, MEDICATED PER MD AND COMFORT CARE ORDER , SUPPORTIVE FAMILY AT THE BEDSIDE, SR UP x3, CALL LIGHT WITHIN EASY REACH . WILL ENDORCE TO SELVAGE MACHINE OPERATOR RN FOR CONTINUE OF COMFORT CARE .
[2016-08-04] MEDS: LORAZEPAM INJ 2 MG/ML VIAL IV PRN (18:09)
--- NOTE | 2016-08-04 18:59 | NUR ---
RN NOTES FAMILY REQUESTING MORPHINE GTT , DR ARMAS PAGED AND NOTIFIED
[2016-08-04] MEDS ORDERED: MORPHINE SULFATE PF DRIP 250 MG in IV D5W 240 ML IV PRN (19:30)
--- NOTE | 2016-08-04 19:30 | NUR ---
RN NOTES RECEIVED PATIENT IN BED WITH EYES OPEN; NO SIGNS OF ACUTE DISTRESS NOTED. NO SIGNS OF PAIN NOTED. IV SITES PATENT, INTACT; FLUSHED. ON LOW BED WITH BILATERAL UPPER SIDE RAILS UP. CALL LIGHT WITHIN EASY REACH. WILL CONTINUE TO MONITOR. FAMILY AT BEDSIDE.
[2016-08-04 20:00] VITALS: BP 112/46
[2016-08-04] MEDS ORDERED: SET PCA INFUSE SET 1 EA INFUS.SET MC ONE (21:10)
--- NOTE | 2016-08-05 06:31 | NUR ---
RN NOTES PATIENT IN BED WITH EYES CLOSED, AROUSABLE. RESPIRATIONS EVEN. NO SIGNS OF PAIN NOTED. MORPHINE DRIP ONGOING. SAFETY PRECAUTIONS AND COMFORT MEASURES IN PLACE. WILL GIVE REPORT TO DAY SHIFT FOR CONTINUITY OF CARE.
[2016-08-05] MEDS ORDERED: PIPERACILLIN /TAZOBACTAM 3.375 G VIAL IV ONE (06:48)
[2016-08-05] MEDS ORDERED: IV D5W 50 ML IV ONE (06:49)
--- NOTE | 2016-08-05 08:00 | NUR ---
son at bedside...no change inpt condition...morphine gtt continues at 1mg....pt non verbal et v/s wnl at this time
[2016-08-05] MEDS: SCOPOLAMINE HBR 1 EA PATCH.TD72 TD SCH (16:24)
--- NOTE | 2016-08-05 16:25 | NUR ---
transaderm patch refused by ...........thinks what hes getting has made him comfortable
--- NOTE | 2016-08-05 18:31 | NUR ---
family remains at bedside...no change inpatients condition at this time...remains nonverbal............ morphine gtt continues @ 2mg
--- NOTE | 2016-08-05 19:30 | NUR ---
REJECTOR INITIAL NOTE RECEIVED REPORT FROM JUAN A SYSTEMS SOFTWARE SPECIALIST. PT IN BED, OBTUNDED. FAMILY AT BEDSIDE. OIL REFINERY PROCESS TECHNICIAN MORPHINE RUNNING AT 2MG/HR. PT IS IN NO DISTRESS. NPO FOR 7 DAYS TODAY. WILL CONTINUE TO MONITOR.
[2016-08-05 20:00] VITALS: BP 106/49
--- NOTE | 2016-08-06 07:20 | NUR ---
RN NOTES RECEIVED PATIENT IN BED, SON, COREY, AT BEDSIDE, PT NOTED WITH SHALLOW BREATHING AT 22 BPM WITH INCREASED RESPIRATORY EFFORT, MORPHINE INCREASED TO 5MG/HR ORDERED WITH 2 RN WITNESS. PT COOL TO TOUCH, PER SON WANTS PT TO BE COMFORTABLE WANTS VS TO BE TAKEN AT A LATER TIME, WILL CONTINUE TO MONITOR, PT ON HOSPICE CARE
--- NOTE | 2016-08-06 08:05 | NUR ---
H/RN NOTIFIED BY PRIMARY NURSE THAT PT HAS PASSED, ASSESSED PT, VERIFIED PT WITH NO PULSE. PT'S SON AT BEDSIDE. [employer] CALLED, NOT QUALIFIED D/T TO AGE, CASE #: [id number]. NURSING METAL SANDER NOTIFIED. FAMILY HAS ALREADY ARRANGED SERVICES THROUGH [employer].
--- NOTE | 2016-08-06 08:05 | NUR ---
RN NOTES CHECKED PT, PT WITH NO RESPIRATIONS NO PALPABLE PULSE. VS UNAPPRECIATED,BREATH SOUNDS AND APICAL PULSE UNABLE TO BE AUSCULTATED. CHARGE NURSE MADE AWARE, HOSPICE [facility] MADE AWARE SPOKE TO [facility], WILL ASSIST WITH MORTUARY ARRANGEMENTS. SONCOREY, AT BEDSIDE AWARE, PROVIDED EMOTIONAL SUPPORT AND PRIVACY, PER SON FAMILY WILL COME PRIOR TO POST MORTEM CARE
--- NOTE | 2016-08-06 10:15 | NUR ---
RN NOTES POST MORTEM CARE PROVIDED, SECURITY WILL ASSIST WITH TAKING BODY TO [place]
--- NOTE | 2016-08-06 10:23 | NUR ---
H/RN POST MORTEM CARE PROVIDED. [employer] CALLED @ [phone], CASE # [id number] TO NOTIFY PT'S BODY IS READY FOR TRANSPORT. SPOKE TO RAFFY CABAN. BODY TO BE TRANSPORTED TO [facility]. DR. ARMAS NOTIFIED OF PT'S PASSING.
--- NOTE | 2016-08-06 10:40 | NUR ---
RN NOTES BODY TAKEN TO [facility] WITH ASSISTANCE OF SECURITY
== END 2016-08-06 11:20 | disposition expired | DRG 720 ==
LOC: HOSPICE1 09:50
PROVIDERS: ADMIT Family Medicine; ATTEND Family Medicine
DX: A41.9 Sepsis, unspecified organism (principal); J96.01 Acute respiratory failure with hypoxia; I21.4 Non-ST elevation (NSTEMI) myocardial infarction; Z51.5 Encounter for palliative care; R65.20 Severe sepsis without septic shock; E87.0 Hyperosmolality and hypernatremia; Z66 Do not resuscitate; D63.8 Anemia in other chronic diseases classified elsewhere; E87.6 Hypokalemia; E88.09 Other disorders of plasma-protein metabolism, not elsewhere classified; G20 Parkinson's disease; I10 Essential (primary) hypertension; J18.9 Pneumonia, unspecified organism; G93.40 Encephalopathy, unspecified
CPT/HCPCS: 94760-TC; 94799-TC; J2060; J2270; J2274; J2543; J7060